=== PATIENT | female | born 2000 | race African-American/Black ===

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

== ENCOUNTER 2023-05-10 14:11 | Emergency (ER) | payer MEDICAID, SELFPAY ==
--- NOTE | ~2023-05-10 | US_ITS ---
EXAMINATION: US ABDOMEN LIMITED CLINICAL INFORMATION: Epigastric, right upper quadrant pain. COMPARISON: None available. TECHNIQUE: Real-time imaging of the right upper quadrant abdominal viscera. FINDINGS: PANCREAS: Normal. LIVER: The liver is normal in size. The liver contour is normal. Parenchymal echogenicity is normal. There is an echogenic lesion in the right hepatic lobe measuring 1.0 1.6 x 0.8 cm. There is no intrahepatic biliary duct dilatation seen. GALLBLADDER: Gallbladder wall thickness is 0.2 cm The gallbladder is physiologically distended without evidence of stones, sludge, polyps, wall thickening or pericholecystic fluid. COMMON BILE DUCT: Normal in caliber measuring 0.2 cm in diameter. RIGHT KIDNEY: Normal. No hydronephrosis. No renal calculi or focal parenchymal lesions. The kidney measures 9.8 cm in maximum dimension. FREE FLUID: None. US/US abdomen limited IMPRESSION: 1. Echogenic lesion right hepatic lobe likely hemangioma. 2. The rest of the limited abdomen ultrasound is unremarkable.
[2023-05-10 14:23] VITALS: BP 141/78; BP 142/90; PULSE 102; PULSE 93; RESP 18; TEMP 36.7; O2SAT 97; BMI 32.4
[2023-05-10 17:56] LABS: MANUAL DIFF FLAG NO
--- OUTSIDE RECORDS SUMMARY | 2023-05-10 18:01 | XMS_ITS | Continuity of Care Document ---
Author Name Unknown Organization [facility] Address [address] [place] [address]- Care Team Providers Care Mini Shifter Name Role Phone Elana Jones MD Primary Care Physician Encounter [facility] Date(s): 02/03/22 - 06/03/22 [facility] [address] [place] [id number]- Attending Physician: Gena Chou MD Admitting Physician: Gena Chou MD Allergies, Adverse Reactions, Alerts No Known Allergies Medications 18G 1inch needle 18G 1inch needle, See Instructions, # 4 each, Refills 5, Tot. Refills 5, Maintenance, to draw testosterone, to be administered weekly, 03/10/22 16:07:00 EDT, Compound, 162, cm, 01/05/22 10:38:00 EDT,Height, 82.6, kg, 01/05/22 10:38:00 EDT, Dry Weight Start Date: 03/10/22 Status: Ordered 1ml syringe 1ml syringe, See Instructions, # 4 each, Refills 5, Tot. Refills 5, Maintenance, To administer testosterone weekly, 03/10/22 16:07:00 EDT, Do NOT dispense insulin syringe, Compound, 162, cm, 01/05/2210:38:00 EDT, Height, 82.6, kg, 01/05/22 10:38:00 E... Start Date: 03/10/22 Status: Ordered 25G 5/8'' needle 25G 5/8'' needle, See Instructions, # 4 each, Refills 5, Tot. Refills 5, Maintenance, use to administer testosterone SQ weekly, 03/10/22 16:07:00 EDT, Supply, 162, cm, 01/05/22 10:38:00 EDT, Height, 82.6, kg, 01/05/22 10:38:00 EDT, Dry Weight Start Date: 03/10/22 Status: Ordered Abilify 20 mg oral tablet 1 tablet = 20 mg, By Mouth, Daily at bedtime, 0 Refills, Maintenance, 08/04/21 14:10:00 EDT, Partial fill upon patient request if the prescription is for a schedule II opioid drug. Start Date: 08/04/21 Status: Ordered Alcohol Pads See Instructions, # 100 each, Refills 11, Tot. Refills 11, Maintenance, For testosterone injectionsuse once weekly prior to injection, 03/01/22 11:45:00 EDT, Supply, 162, cm, 01/05/22 10:38:00 EDT, Height, 82.6, kg, 01/05/22 10:38:00 EDT, Dry Weight Start Date: 03/01/22 Status: Ordered escitalopram 20 mg oral tablet 1 tablet = 20 mg, By Mouth, Daily, 0 Refills, Maintenance, 08/04/21 14:11:00 EDT, Partial fill uponpatient request if the prescription is for a schedule II opioid drug. Start Date: 08/04/21 Status: Ordered lamotrigine 25 mg oral tablet 25 mg, 1, tablet, By Mouth, Daily, # 14 tablet, Refills 0, Tot. Refills 0, Maintenance, 08/17/21 14:13:00 EDT, Route to Pharmacy Electronically, [facility]/pharmacy #[id number], Partial fill upon patient request if the prescription is for a schedule II opioid drug... Start Date: 08/17/21 Stop Date: 08/31/21 Status: Ordered testosterone cypionate 200 mg/mL intramuscular solution See Instructions, 50mg (0.25ml) subcutaneously every 7 days., # 4 each, 3 Refills, Maintenance, 04/08/22 8:55:00 [facility], [facility] Delivery, Dose increase. Single-dose vials., 162, cm, 01/05/22 10:38:00 EDT, Height, 82.6, kg, 01/05/22 10:38:00... Start Date: 04/08/22 Status: Ordered Problem List Condition Confirmation Course Effective Dates Status Health [facility] Informant Gender dysphoria Confirmed Active Major depression with psychotic features Confirmed Active Obese class I Confirmed Active Post traumatic stress disorder (PTSD) Confirmed Active Social History Social History Type Response Smoking Status Never (less than 100 in lifetime) entered on: 04/12/21 Sex Patient Care team information Care Team Personnel Name: Elana Jones MD Position: [facility] General Pediatrics MD Member Role: PCP Address: Address: [address] [place] [address] [facility] [place] [address]- Care Team Related Persons Name: NIYAH ESCALERA Address: home [address] [place] [id number] Name: BUDDY OSHEA Address: [place] [address]
--- OUTSIDE RECORDS SUMMARY | 2023-05-10 18:01 | XMS_ITS | Continuity of Care Document ---
Author Name Unknown Organization [facility] Address [address] [place] [address]- Care Team Providers Care Screenplay Writer Name Role Phone Elana Jones MD Primary Care Physician [place] [facility] [place]10[place]21 - 12/10/21 [facility] [address] [place] [phone]- [place] Allergies, Adverse Reactions, Alerts No Known Medication Allergies Medications 18G 1inch needle 18G 1inch needle, See Instructions, # 4 each, Refills 5, Tot. Refills 5, Maintenance, to draw testosterone, to be administered weekly, 11/16/21 9:55:00 EDT, Compound, 162, cm, 08/04/21 14:06:00 EDT, Height, 68, kg, 07/25/21 11:12:00 EDT, Dry Weight Start Date: 11/16/21 Status: Ordered 1ml syringe 1ml syringe, See Instructions, # 4 each, Refills 5, Tot. Refills 5, Maintenance, To administer testosterone weekly, 11/16/21 9:55:00 EDT, Compound, 162, cm, 08/04/21 14:06:00 EDT, Height, 68, kg, 07/25/21 11:12:00 EDT, Dry Weight Start Date: 11/16/21 Status: Ordered 25G 5/8'' needle 25G 5/8'' needle, See Instructions, # 4 each, Refills 5, Tot. Refills 5, Maintenance, use to administer testosterone SQ weekly, 11/16/21 9:55:00 EDT, Supply, 162, cm, 08/04/21 14:06:00 EDT, Height, 68, kg, 07/25/21 11:12:00 EDT, Dry Weight Start Date: 11/16/21 Status: Ordered Abilify 20 mg oral tablet 1 tablet = 20 mg, By Mouth, Daily at bedtime, 0 Refills, Maintenance, 08/04/21 14:10:00 EDT, Partial fill upon patient request if the prescription is for a schedule II opioid drug. Start Date: 08/04/21 Status: Ordered Alcohol Pads See Instructions, # 50 each, Refills 11, Tot. Refills 11, Maintenance, For testosterone injections use once weekly prior to injection, 11/25/21 15:19:00 EDT, Supply, 162.2, cm, 11/25/21 13:45:00 EDT,Height, 78.35, kg, 11/25/21 13:45:00 EDT, Dry Weight Start Date: 11/25/21 Status: Ordered escitalopram 20 mg oral tablet [...] 08/17/21 14:13:00 EDT, Route to Pharmacy Electronically, [facility]/pharmacy #[id number], Partial fill upon patient request if the prescription is for a schedule II opioid drug... Start Date: 08/17/21 Stop Date: 08/31/21 Status: Ordered testosterone cypionate 200 mg/mL intramuscular solution See Instructions, 40mg (0.2ml) subcutaneously Every 7 days, # 4 each, 5 Refills, Maintenance, 11/16/21 9:55:00 EDT, [id number], Partial fill upon patient request if the prescription is for a schedule II opioid drug., 162, cm, 08/04/21 14:06:00... Start Date: 11/16/21 Status: Ordered Problem List Condition Effective Dates Status Health Status Inform ant Gender dysphoria(Confirmed) Active Major depression with psycho tic features(Confirmed) Active Post traumatic stress disord er (PTSD)(Confirmed) Active Social History Social History Type Response Smoking Status Never (less than 100 in lifetime) entered on: 04/12/21 Sex
--- OUTSIDE RECORDS SUMMARY | 2023-05-10 18:01 | XMS_ITS | Continuity of Care Document ---
Author Name Unknown Organization [facility] Address [address] [place] [address]- Care Team Providers Care Wood Sash And Frame Carpenter Name Role Phone Elana Jones MD Primary Care Physician Encounter [facility] Date(s): 02/12/22 - 03/14/22 [facility] [address] [place] [phone]- [place] Allergies, Adverse Reactions, Alerts No Known Allergies [...] 08/17/21 14:13:00 EDT, Route to Pharmacy Electronically, [facility]/pharmacy #[id number], Partial fill upon patient request if the prescription is for a schedule II opioid drug... Start Date: 08/17/21 Stop Date: 08/31/21 Status: Ordered testosterone cypionate 200 mg/mL intramuscular solution See Instructions, 40mg (0.2ml) subcutaneously every 7 days., # 4 each, 2 Refills, Maintenance, 02/10/22 10:22:00 EDT, [facility] Home [facility], Partial fill upon patient request if the prescription is for a schedule II opioid drug., 162, cm, 12/09... Start Date: 02/10/22 Status: Ordered Problem List Condition Confirmation Course Effective Dates Status Health St [facility] Informant Gender dysphoria Confirmed Active Major depression with psychotic features Confirmed Active Obese class I Confirmed Active Post traumatic stress disorder (PTSD) Confirmed Active Social History Social History Type Response Smoking Status Never (less than 100 in lifetime) entered on: 04/12/21 Sex Patient Care team information Personnel Name: Karen BIRD, Elana Address: Address: [address] [place] [address] [facility] [place], [place] [address]
--- OUTSIDE RECORDS SUMMARY | 2023-05-10 18:01 | XMS_ITS | Continuity of Care Document ---
Author Name Unknown Organization [facility] Address [address] [place] [address]- Care Team Providers Care Technician Trainee Name Role Phone Elana Jones MD Primary Care Physician [place] [facility] [place] 01/20/22 - 02/19/22 [facility] [address] [place] [phone]- [place] Allergies, Adverse Reactions, Alerts No Known Allergies Medications 18G 1inch needle 18G 1inch needle, See Instructions, # 4 each, Refills 5, Tot. Refills 5, Maintenance, to draw testosterone, to be administered weekly, 02/12/22 11:29:00 EDT, Compound, 162, cm, 01/05/22 10:38:00 EDT,Height, 82.6, kg, 01/05/22 10:38:00 EDT, Dry Weight Start Date: 02/12/22 Status: Ordered 1ml syringe 1ml syringe, See Instructions, # 4 each, Refills 5, Tot. Refills 5, Maintenance, To administer testosterone weekly, 02/12/22 11:29:00 EDT, Do NOT dispense insulin syringe, Compound, 162, cm, 01/05/2210:38:00 EDT, Height, 82.6, kg, 01/05/22 10:38:00 E... Start Date: 02/12/22 Status: Ordered 25G 5/8'' needle 25G 5/8'' needle, See Instructions, # 4 each, Refills 5, Tot. Refills 5, Maintenance, use to administer testosterone SQ weekly, 02/12/22 11:29:00 EDT, Supply, 162, cm, 01/05/22 10:38:00 EDT, Height, 82.6, kg, 01/05/22 10:38:00 EDT, Dry Weight Start Date: 02/12/22 Status: Ordered Abilify 20 mg oral tablet [...] injections use once weekly prior to injection, 02/09/22 11:03:00 EDT, Supply, 162, cm, 01/05/22 10:38:00 EDT, Height, 82.6, kg, 01/05/22 10:38:00 EDT, Dry Weight Start Date: 02/09/22 Status: Ordered escitalopram 20 mg oral tablet [...] 08/17/21 14:13:00 EDT, Route to Pharmacy Electronically, [facility]/pharmacy #[id number], Partial fill upon patient request if the prescription is for a schedule II opioid drug... Start Date: 08/17/21 Stop Date: 08/31/21 Status: Ordered testosterone cypionate 200 mg/mL intramuscular solution See Instructions, 40mg (0.2ml) subcutaneously every 7 days., # 4 each, 2 Refills, Maintenance, 02/10/22 10:22:00 EDT, [facility] Home Delivery, Partial fill upon patient [...] Personnel Name: Karen BIRD, Elana Address: Address: [address] [place] [address] [facility] [place], [place] [address]
--- OUTSIDE RECORDS SUMMARY | 2023-05-10 18:01 | XMS_ITS | Continuity of Care Document ---
Author Name Unknown Organization [facility] Address [address] [place] [address]- Care Team Providers Care Mill Representative Name Role Phone Elana Jones MD Primary Care Physician [place] [facility] [place] Date(s): 11/05/21 - 12/05/21 [facility] [address] [place] [phone]- [place] Allergies, Adverse Reactions, Alerts No Known [...] 08/17/21 14:13:00 EDT, Route to Pharmacy Electronically, [facility]/pharmacy #[id number], Partial fill upon patient request if the prescription is for a schedule II opioid drug... Start Date: 08/17/21 Stop Date: 08/31/21 Status: Ordered testosterone cypionate 200 mg/mL intramuscular solution See Instructions, 40mg (0.2ml) subcutaneously Every 7 days, # 4 each, 5 Refills, Maintenance, 11/16/21 9:55:00 EDT, [id number], Partial fill upon patient request if the [...]
--- OUTSIDE RECORDS SUMMARY | 2023-05-10 18:01 | XMS_ITS | Continuity of Care Document ---
Author Name Unknown Organization [facility] Address [address] [place] [address]- Care Team Providers Care Airline Pilot Name Role Phone Elana Jones MD Primary Care Physician Encounter [facility] [place] Date(s): 03/10/22 - 04/09/22 [facility] [address] [place] [phone]- [place] Allergies, Adverse Reactions, Alerts No Known [...] 08/17/21 14:13:00 EDT, Route to Pharmacy Electronically, [facility]/pharmacy #[id number], Partial fill upon patient request if the prescription is for a schedule II opioid drug... Start Date: 08/17/21 Stop Date: 08/31/21 Status: Ordered testosterone cypionate 200 mg/mL intramuscular solution See Instructions, 50mg (0.25ml) subcutaneously every 7 days., # 4 each, 3 Refills, Maintenance, 04/08/22 8:55:00 [facility], [facility] Home Delivery, Dose increase. Single-dose vials., [...] Team Personnel Name: Elana Jones MD Position: [facility] General Pediatrics MD Member Role: PCP Address: Address: [address] [place] [address] [place] [address]- Care Team Related Persons Name: NIYAH ESCALERA Address: home [address] [place] [phone] Name: BUDDY OHSEA Address: [place] [address]
--- OUTSIDE RECORDS SUMMARY | 2023-05-10 18:01 | XMS_ITS | Continuity of Care Document ---
Author Name Unknown Organization [facility] Address [address] [place] [address]- Care Team Providers Care Tube Worker Name Role Phone Elana Jones MD Primary Care Physician [place] [facility] [place](s[place] 03/09/22 - 04/08/22 [facility] [address] [place] [address]- [place] Allergies, Adverse Reactions, Alerts No Known [...] 08/17/21 14:13:00 EDT, Route to Pharmacy Electronically, [facility]/pharmacy #[id number], Partial fill upon patient request if the prescription is for a schedule II opioid drug... Start Date: 08/17/21 Stop Date: 08/31/21 Status: Ordered testosterone cypionate 200 mg/mL intramuscular solution See Instructions, 50mg (0.25ml) subcutaneously every 7 days., # 4 each, 3 Refills, Maintenance, 04/08/22 8:55:00 [facility], [facility] Home Delivery, Dose increase. Single-dose vials., [...] Team Personnel Name: Elana Jones MD Position: [facility] General Pediatrics MD Member Role: PCP Address: Address: [address] [place] [address] [place] [address]- Care Team Related Persons Name: NIYAH ESCALERA Address: home [address] [place] [phone] Name: BUDDY OSHEA Address: [place] [address]
--- OUTSIDE RECORDS SUMMARY | 2023-05-10 18:01 | XMS_ITS | Continuity of Care Document ---
Author Name Unknown Organization [facility] Address [address] [place] [address]- Care Team Providers Care Assistant Professor Of Anthropology Name Role Phone Elana Jones MD Primary [facility] Phys[id number] Date[facility] 08/19/21 - 12/16/21 [facility] [address] [place] [phone]- Attending Physician: Mel Zhao MD Admitting Physician: Mel Zhao MD Allergies, Adverse Reactions, Alerts No Known Medication [...] 08/17/21 14:13:00 EDT, Route to Pharmacy Electronically, [facility]/pharmacy #[id number], Partial fill upon patient request if the prescription is for a schedule II opioid drug... Start Date: 08/17/21 Stop Date: 08/31/21 Status: Ordered testosterone cypionate 200 mg/mL intramuscular solution See Instructions, 40mg (0.2ml) subcutaneously Every 7 days, # 4 each, 5 Refills, Maintenance, 11/16/21 9:55:00 EDT, [facility]/pharmacy #[id number], Partial fill upon patient request if the [...]
--- OUTSIDE RECORDS SUMMARY | 2023-05-10 18:01 | XMS_ITS | Continuity of Care Document ---
Author Name Unknown Organization [facility] Address [address] [place] [phone]- Care Team Providers Care Glass Curvature Gauger Name Role Phone Ealna Jones MD Primary Care Physician Encounter [facility] Date(s): 12/07/22 - 01/06/23 [facility] [address] [place] [id number] Allergies, Adverse Reactions, Alerts No Known Allergies Medications 18G 1inch needle 18G 1inch needle, See Instructions, # 4 each, Refills 5, Tot. Refills 5, Maintenance, to draw testosterone, to be administered weekly, 07/29/22 15:46:00 EDT, Compound, 162, cm, 01/05/22 10:38:00 EDT,Height, 82.6, kg, 01/05/22 10:38:00 EDT, Dry Weight Start Date: 07/29/22 Status: Ordered 1ml syringe 1ml syringe, See Instructions, # 4 each, Refills 5, Tot. Refills 5, Maintenance, To administer testosterone weekly, 07/29/22 15:46:00 EDT, Do NOT dispense insulin syringe, Compound, 162, cm, 01/05/2210:38:00 EDT, Height, 82.6, kg, 01/05/22 10:38:00 E... Start Date: 07/29/22 Status: Ordered 25G 5/8'' needle 25G 5/8'' needle, See Instructions, # 4 each, Refills 5, Tot. Refills 5, Maintenance, use to administer testosterone SQ weekly, 07/29/22 15:43:00 EDT, Supply, 162, cm, 01/05/22 10:38:00 EDT, Height, 82.6, kg, 01/05/22 10:38:00 EDT, Dry Weight Start Date: 07/29/22 Status: Ordered Abilify 20 mg oral tablet [...] 08/17/21 14:13:00 EDT, Route to Pharmacy Electronically, [facility]/pharmacy #[id number], Partial fill upon patient request if the prescription is for a schedule II opioid drug... Start Date: 08/17/21 Stop Date: 08/31/21 Status: Ordered testosterone cypionate 200 mg/mL intramuscular solution See Instructions, 50mg (0.25ml) subcutaneously every 7 days., # 4 each, 5 Refills, Maintenance, 12/31/22 15:23:00 EDT, Dose increase. Single-dose vials. Start Date: 12/31/22 Status: Ordered Problem List Condition Confirmation Course [...] Team Personnel Name: Elana Jones MD Position: [facility] Physician - Pediatrics Member Role: PCP Address: Address: [address] [place] [address] [facility] [place] [address]- Care Team Related Persons Name: NIYAH ESCALERA Address: home [address] [place] [address] Name: BUDDY OSHEA Address: [place] [address]
--- OUTSIDE RECORDS SUMMARY | 2023-05-10 18:01 | XMS_ITS | Continuity of Care Document ---
Author Name Unknown Organization [facility] Address [address] [place] [address]- Care Team Providers Care Cylinder Machine Operator Name Role Phone Elana Jones MD Primary Care Physician [place] [facility] [place]10[place] - 04/09/22 [facility] [address] [place] [address]- [place] Allergies, Adverse Reactions, Alerts No Known [...] 14:13:00 EDT, Route to Pharmacy Electronically, [facility]/pharmacy #[id number], Partial fill upon patient request if the prescription is for a schedule II opioid drug... Start Date: 08/17/21 Stop Date: 08/31/21 Status: Ordered testosterone cypionate 200 mg/mL intramuscular solution See Instructions, 50mg (0.25ml) subcutaneously every 7 days., # 4 each, 3 Refills, Maintenance, 04/08/22 8:55:00 [facility], Dose increase. Single-dose vials., [...] Team Personnel Name: Elana Jones MD Position: [facility] General Pediatrics MD Member Role: PCP Address: Address: [address] [place] [address] [place] [address]- Care Team Related Persons Name: NIYAH ESCALERA Address: home [address] [place] [phone] Name: BUDDY OSHEA Address: [place] [address]
--- OUTSIDE RECORDS SUMMARY | 2023-05-10 18:01 | XMS_ITS | Continuity of Care Document ---
Author Name Unknown Organization [facility] Address [address] [place] [address]- Care Team Providers Care Trolley Car Overhauler Name Role Phone Elana Jones MD Primary Care Physician [place] [facility] [place] 09/02/22 [facility] [address] [place] [address]- Allergies, Adverse Reactions, Alerts No Known Allergies [...] 08/17/21 14:13:00 EDT, Route to Pharmacy Electronically, [facility]/pharmacy #[id number], Partial fill upon patient request if the prescription is for a schedule II opioid drug... Start Date: 08/17/21 Stop Date: 08/31/21 Status: Ordered testosterone cypionate 200 mg/mL intramuscular solution See Instructions, 50mg (0.25ml) subcutaneously every 7 days., # 4 each, 3 Refills, Maintenance, 08/03/22 15:49:00 EDT, [id number], Dose increase. Single-dose vials., 162, cm, 01/05/22 10:38:00 EDT, Height, 82.6, kg, 01/05/22 10:38:00 EDT, Dry... Start Date: 08/03/22 Status: Ordered Problem List Condition Confirmation Course [...] Team Personnel Name: Elana Jones MD Position: [facility] General Pediatrics MD Member Role: PCP Address: Address: [address] [place] [address] [place] [address]- Care Team Related Persons Name: NIYAH ESCALERA Address: home [address] [place] [phone] Name: BUDDY OSHEA Address: [place] [address]
--- OUTSIDE RECORDS SUMMARY | 2023-05-10 18:02 | XMS_ITS | Continuity of Care Document ---
Author Name Unknown Organization [facility] nd[facility] Address [address] [place] [address]- Care Team Providers Care Upper Marker Name Role Phone Elana Jones MD Primary Care Physician En[place] [facility] [place] Date(s): 01/20/22 - 02/19/22 [facility] [address] [place] [address]- [place] Allergies, Adverse Reactions, Alerts No Known [...] 08/17/21 14:13:00 EDT, Route to Pharmacy Electronically, [facility]/pharmacy #[id number], Partial fill upon patient request if the prescription is for a schedule II opioid drug... Start Date: 08/17/21 Stop Date: 08/31/21 Status: Ordered testosterone cypionate 200 mg/mL intramuscular solution See Instructions, 40mg (0.2ml) subcutaneously every 7 days., # 4 each, 2 Refills, Maintenance, 02/10/22 10:22:00 EDT, [facility] Home Delivery, Partial fill upon patient [...] Personnel Name: Karen BIRD, Elana Address: Address: [address] [place] [address] [facility] [place], [place] [address]
--- OUTSIDE RECORDS SUMMARY | 2023-05-10 18:02 | XMS_ITS | Continuity of Care Document ---
Author Name Unknown Organization [facility] Address [address] [place] [address]- Care Team Providers Care Cable Installer Repairer Name Role Phone Elana Jones MD Primary Care Physician En[place] [facility] [place] Date(s): 06/18/22 - 07/18/22 [facility] [address] [place] [phone]- Allergies, Adverse Reactions, Alerts No Known Allergies [...] Maintenance, use to administer testosterone SQ weekly, 06/29/22 13:46:00 EST, Supply, 162, cm, 01/05/22 10:38:00 EDT, Height, 82.6, kg, 01/05/22 10:38:00 EDT, Dry Weight Start Date: 06/29/22 Status: Ordered Abilify 20 mg oral tablet [...] 08/17/21 14:13:00 EDT, Route to Pharmacy Electronically, [facility]/pharmacy #[id number], Partial fill upon patient request if the prescription is for a schedule II opioid drug... Start Date: 08/17/21 Stop Date: 08/31/21 Status: Ordered testosterone cypionate 200 mg/mL intramuscular solution See Instructions, 50mg (0.25ml) subcutaneously every 7 days., # 4 each, 3 Refills, Maintenance, 04/08/22 8:55:00 [facility], [facility] Home Delivery, Dose increase. Single-dose vials., [...] Team Personnel Name: Elana Jones MD Position: [facility] General Pediatrics MD Member Role: PCP Address: Address: [address] [place] [address] [place] [address]- Care Team Related Persons Name: NIYAH ESCALERA Address: home [address] [place] [phone] Name: BUDDY OHSEA Address: [place] [address]
--- OUTSIDE RECORDS SUMMARY | 2023-05-10 18:02 | XMS_ITS | Continuity of Care Document ---
Author Name Unknown Organization [facility] Address [address] [place] [address]- Care Team Providers Care Powerhouse Electrician Apprentice Name Role Phone Elana Jones MD Primary Care Physician [place] [facility] [place] 12[place]16[place]21 [facility] [address] [place] [phone]- [place] Allergies, Adverse Reactions, Alerts No Known [...] 08/17/21 14:13:00 EDT, Route to Pharmacy Electronically, [facility]/pharmacy #[id number], Partial fill upon patient request if the prescription is for a schedule II opioid drug... Start Date: 08/17/21 Stop Date: 08/31/21 Status: Ordered testosterone cypionate 200 mg/mL intramuscular solution See Instructions, 40mg (0.2ml) subcutaneously Every 7 days, # 4 each, 5 Refills, Maintenance, 11/16/21 9:55:00 EDT, [facility]/pharmacy #[id number], Partial fill upon patient request if the [...]
--- OUTSIDE RECORDS SUMMARY | 2023-05-10 18:02 | XMS_ITS | Continuity of Care Document ---
Author Name Unknown Organization [facility] Address [address] [place] [address]- Care Team Providers Care Aircraft Motor Mechanic Name Role Phone Elana Jones MD Primary Care Physician En[place] [facility] [place] Date(s): 02/12/22 - 03/14/[address] [facility] [address] [place] [phone]- [place] Allergies, Adverse Reactions, Alerts No Known [...] Route to Pharmacy Electronically, [facility]/pharmacy #[id number], Partial fill upon patient request if the prescription is for a schedule II opioid drug... Start Date: 08/17/21 Stop Date: 08/31/21 Status: Ordered testosterone cypionate 200 mg/mL intramuscular solution See Instructions, 40mg (0.2ml) subcutaneously every 7 days., # 4 each, 2 Refills, Maintenance, 02/10/22 10:22:00 EDT, [facility] Home Delivery, Partial fill upon [...] Personnel Name: Karen BIRD, Elana Address: Address: [address] [place] [address] [facility] [place], [place] [address]
--- OUTSIDE RECORDS SUMMARY | 2023-05-10 18:02 | XMS_ITS | Continuity of Care Document ---
Author Name Unknown Organization [facility] E ndocrinology Address [address] [place] [address]- Care Team Providers Care Recyclable Products Sorter Name Role Phone Elana Jones MD Primary Care Physician [place] [facility] [place] - 01/21/22 [facility] [address] [place] [address]- [place] Allergies, Adverse Reactions, Alerts No Known Allergies Medications 18G 1inch needle 18G 1inch needle, See Instructions, # 4 each, Refills 5, Tot. Refills 5, Maintenance, to draw testosterone, to be administered weekly, 12/21/21 14:02:00 EDT, Compound, 162.2, cm, 11/25/21 13:45:00 EDT, Height, 78.35, kg, 11/25/21 13:45:00 EDT, Dry Weight Start Date: 12/21/21 Status: Ordered 1ml syringe 1ml syringe, See Instructions, # 4 each, Refills 5, Tot. Refills 5, Maintenance, To administer testosterone weekly, 12/21/21 14:02:00 EDT, Do NOT dispense insulin syringe, Compound, 162.2, cm, 11/25/21 13:45:00 EDT, Height, 78.35, kg, 11/25/21 13:45:0... Start Date: 12/21/21 Status: Ordered 25G 5/8'' needle 25G 5/8'' needle, See Instructions, # 4 each, Refills 5, Tot. Refills 5, Maintenance, use to administer testosterone SQ weekly, 12/21/21 14:02:00 EDT, Supply, 162.2, cm, 11/25/21 13:45:00 EDT, Height, 78.35, kg, 11/25/21 13:45:00 EDT, Dry Weight Start Date: 12/21/21 Status: Ordered Abilify 20 mg oral tablet [...] 08/17/21 14:13:00 EDT, Route to Pharmacy Electronically, [facility]/pharmacy #[id number], Partial fill upon patient request if the prescription is for a schedule II opioid drug... Start Date: 08/17/21 Stop Date: 08/31/21 Status: Ordered testosterone cypionate 200 mg/mL intramuscular solution See Instructions, 40mg (0.2ml) subcutaneously every 7 days., # 4 each, 3 Refills, Maintenance, 01/20/22 9:57:00 EDT, [facility]/pharmacy #[id number], Partial fill upon patient request if the prescription is for aschedule II opioid drug., 162, cm, 01/05/22 10:38:0... Start Date: 01/20/22 Status: Ordered Problem List Condition Effective Dates Status Health Status Inform ant Gender dysphoria(Confirmed) Active Major depression with psycho tic features(Confirmed) Active Obese class I(Confirmed) Active Post traumatic stress disord er (PTSD)(Confirmed) Active Social History Social History Type Response Smoking Status Never (less than 100 in lifetime) entered on: 04/12/21 Sex Care Team Personnel Name: Elana Jones MD Address: [address] [place] [address] [facility] [place] [address]
--- OUTSIDE RECORDS SUMMARY | 2023-05-10 18:02 | XMS_ITS | Continuity of Care Document ---
Author Name Unknown Organization [facility] Address [address] [place] [address]- Care Team Providers Care Loss Control Technician Name Role Phone Elana Jones MD Primary Care Physician Encounter [facility] [place] Date(s): 01/12/23 - 02/11/23 [facility] [address] [place] [id number] Allergies, Adverse Reactions, Alerts No Known Allergies [...] 08/17/21 14:13:00 EDT, Route to Pharmacy Electronically, [facility]/pharmacy #[id number], Partial fill upon patient request if the prescription is for a schedule II opioid drug... Start Date: 08/17/21 Stop Date: 08/31/21 Status: Ordered Problem List Condition Confirmation Course [...] Team Personnel Name: Elana Jones MD Position: [facility] Physician - Pediatrics Member Role: PCP Address: Address: [address] [place] [address] [place] [address]- Care Team Related Persons Name: NIYAH ESCALERA Address: home [address] [place] [address] Name: BUDDY OSHEA Address: [place] [address]
--- OUTSIDE RECORDS SUMMARY | 2023-05-10 18:02 | XMS_ITS | Continuity of Care Document ---
Author Name Unknown Organization [facility] ndocrin[facility] Address [address] [place] [address]- Care Team Providers Care User Experience Designer Name Role Phone Elana Jones MD Primary Care Physician En[place] [facility] [place] Date(s): 01/11/23 - 02/10/23 [facility] [address] [place] [address]- [place] Allergies, Adverse Reactions, Alerts No Known [...] 08/17/21 14:13:00 EDT, Route to Pharmacy Electronically, [facility]/pharmacy #[id number], Partial fill upon patient request if the prescription is for a schedule II opioid drug... 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 Obese class I Confirmed Active Post traumatic stress disorder (PTSD) Confirmed Active Social History Social History Type Response Smoking Status Never (less than 100 in lifetime) entered on: 04/12/21 Sex Patient Care team information Care Team Personnel Name: Elana Jones MD Position: [facility] Physician - Pediatrics Member Role: PCP Address: Address: [address] [place] [address] [facility] [place] [address]- Care Team Related Persons Name: NIYAH ESCALERA Address: home [address] [place] [id number] Name: BUDDY OSHEA Address: [place] [address]
--- OUTSIDE RECORDS SUMMARY | 2023-05-10 18:02 | XMS_ITS | Continuity of Care Document ---
Author Name Unknown Organization [facility] ndocrinology Address [address] [place] [address]- Care Team Providers Care Director Social Name Role Phone Elana Jones MD Primary Care Physician [facility] [place] Date(s): 06/18/22 - 07/18/22 [facility] Endocr[facility]ology [address] [place] [address]- Allergies, Adverse Reactions, Alerts No Known Allergies [...] 08/17/21 14:13:00 EDT, Route to Pharmacy Electronically, [facility]/pharmacy #[id number], Partial fill upon patient request if the prescription is for a schedule II opioid drug... Start Date: 08/17/21 Stop Date: 08/31/21 Status: Ordered testosterone cypionate 200 mg/mL intramuscular solution See Instructions, 50mg (0.25ml) subcutaneously every 7 days., # 4 each, 3 Refills, Maintenance, 04/08/22 8:55:00 [facility] Home Delivery, Dose increase. Single-dose vials., [...] Team Personnel Name: Elana Jones MD Position: [facility] General Pediatrics MD Member Role: PCP Address: Address: [address] [place] [address] [place] [address]- Care Team Related Persons Name: NIYAH ESCALERA Address: home [address] [place] [phone] Name: BUDDY OSHEA Address: [place] [address]
--- OUTSIDE RECORDS SUMMARY | 2023-05-10 18:02 | XMS_ITS | Continuity of Care Document ---
Author Name Unknown Organization [facility] E ndocrinology Address [address] [place] [address]- Care Team Providers Care Boat Deckhand Name Role Phone Elana Jones MD Primary Care Physician [place] [facility] [place] 01/11/23 - 02/10/23 [facility] Endocr[facility] [address] [place] [phone]- [place] Allergies, Adverse Reactions, Alerts No Known [...] to Pharmacy Electronically, [facility]/pharmacy #[id number], Partial fill upon patient request if the [...] Team Personnel Name: Elana Jones MD Position: [facility] Physician - Pediatrics Member Role: PCP Address: Address: [address] [place] [address] [facility] [place] [address]- Care Team Related Persons Name: NIYAH ESCALERA Address: home [address] [place] [phone] Name: BUDDY OSHEA Address: [place] [address]
--- OUTSIDE RECORDS SUMMARY | 2023-05-10 18:02 | XMS_ITS | Continuity of Care Document ---
Author Name Unknown Organization [facility] E ndocrinology Address [address] [place] [address]- Care Team Providers Care Fruit Grader Operator Name Role Phone Elana Jones MD Primary Care Physician [place] [facility] [place] 01/20/22 [facility] Endocr[facility] [address] [place] [phone]- [place] Allergies, Adverse Reactions, Alerts No Known [...] to Pharmacy Electronically, [facility]/pharmacy #[id number], Partial fill upon patient request if the prescription is for a schedule II opioid drug... Start Date: 08/17/21 Stop Date: 08/31/21 Status: Ordered testosterone cypionate 200 mg/mL intramuscular solution See Instructions, 40mg (0.2ml) subcutaneously every 7 days., # 4 each, 3 Refills, Maintenance, 01/20/22 9:57:00 EDT, [facility]/pharmacy #[id number], Partial fill upon patient request if the [...] Team Personnel Name: Elana Jones MD Address: [address] [place] [address] [facility] [place], [place] [address]
--- OUTSIDE RECORDS SUMMARY | 2023-05-10 18:02 | XMS_ITS | Continuity of Care Document ---
Author Name Unknown Organization [facility] ndocrinology Address [address] [place] [address]- Care Team Providers Care Type Inspector Name Role Phone Elana Jones MD Primary Care Physician Encounter [facility] [place] Date(s): 02/09/22 - 03/11/22 [facility] Endocr[facility]ology [address] [place] [address]- [place] Allergies, Adverse Reactions, Alerts No Known [...] 08/17/21 14:13:00 EDT, Route to Pharmacy Electronically, [facility]/pharmacy #[id number], Partial fill upon patient request if the prescription is for a schedule II opioid drug... Start Date: 08/17/21 Stop Date: 08/31/21 Status: Ordered testosterone cypionate 200 mg/mL intramuscular solution See Instructions, 40mg (0.2ml) subcutaneously every 7 days., # 4 each, 2 Refills, Maintenance, 02/10/22 10:22:00 EDT, [facility] Home Delivery, Partial fill upon patient [...] Personnel Name: Karen BIRD, Elana Address: Address: [address] [place] [address] [facility] [place], [place] [address]
--- OUTSIDE RECORDS SUMMARY | 2023-05-10 18:02 | XMS_ITS | Continuity of Care Document ---
Author Name Unknown Organization [facility] E ndocrinology Address [address] [place] [address]- Care Team Providers Care Logistics Project Manager Name Role Phone Elana Jones MD Primary Care Physician [place] [facility] [place](s): 04/08/22 - 05/08/22 [facility] Endocr[facility] [address] [place] [address]- Allergies, Adverse Reactions, Alerts No Known Allergies [...] 08/17/21 14:13:00 EDT, Route to Pharmacy Electronically, [facility]/pharmacy #[id number], Partial fill upon patient request if the prescription is for a schedule II opioid drug... Start Date: 08/17/21 Stop Date: 08/31/21 Status: Ordered testosterone cypionate 200 mg/mL intramuscular solution See Instructions, 50mg (0.25ml) subcutaneously every 7 days., # 4 each, 3 Refills, Maintenance, 04/08/22 8:55:00 [facility] Pharm[facility] Home Delivery, Dose increase. Single-dose vials., [...] Team Personnel Name: Elana Jones MD Position: [facility] General Pediatrics MD Member Role: PCP Address: Address: [address] [place] [address] [place] [address]- Care Team Related Persons Name: NIYAH ESCALERA Address: home [address] [place] [address] Name: BUDDY OSHEA Address: [place] [address]
--- OUTSIDE RECORDS SUMMARY | 2023-05-10 18:02 | XMS_ITS | Continuity of Care Document ---
Author Name Unknown Organization [facility] Address [address] [place] [address]- Care Team Providers Care Scrap Drop Operator Name Role Phone Elana Jones MD Primary Care Physician [place] [facility] [place]17[place]21 - 09/16/21 [facility] [address] [place] [phone]- Allergies, Adverse Reactions, Alerts No Known Medication Allergies Medications Abilify 20 mg oral tablet 1 tablet = 20 mg, By Mouth, Daily at bedtime, 0 Refills, Maintenance, 08/04/21 14:10:00 EDT, Partial fill upon patient request if the prescription is for a schedule II opioid drug. Start Date: 08/04/21 Status: Ordered escitalopram 20 mg oral tablet [...] 14:13:00 EDT, Route to Pharmacy Electronically, [facility]/pharmacy #[id number], Partial fill upon patient request if the prescription is for a schedule II opioid drug... Start Date: 08/17/21 Stop Date: 08/31/21 Status: Ordered Problem List Condition Effective Dates Status Health Status Inform ant Gender dysphoria(Confirmed) Active Major depression with psycho tic features(Confirmed) Active Post traumatic stress disord er (PTSD)(Confirmed) Active Social History Social History Type Response Smoking Status Never (less than 100 in lifetime) entered on: 04/12/21 Sex
--- OUTSIDE RECORDS SUMMARY | 2023-05-10 18:02 | XMS_ITS | Continuity of Care Document ---
Author Name Unknown Organization [facility] E ndocrinology Address [address] [place] [address]- Care Team Providers Care Mergers And Acquisitions Manager Name Role Phone Elana Jones MD Primary Care Physician En[place] [facility] [place] Date(s): 11/06/21 - 12/06/21 [facility] Endocr[facility] [address] [place] [phone]- [place] Allergies, Adverse Reactions, Alerts No Known [...] 08/17/21 14:13:00 EDT, Route to Pharmacy Electronically, [facility]/pharmacy #[id number], Partial fill upon patient request if the prescription is for a schedule II opioid drug... Start Date: 08/17/21 Stop Date: 08/31/21 Status: Ordered testosterone cypionate 200 mg/mL intramuscular solution See Instructions, 40mg (0.2ml) subcutaneously Every 7 days, # 4 each, 5 Refills, Maintenance, 11/16/21 9:55:00 EDT, [id number], Partial fill upon patient request if the [...]
--- OUTSIDE RECORDS SUMMARY | 2023-05-10 18:02 | XMS_ITS | Continuity of Care Document ---
Author Name Unknown Organization [facility] Address [address] [place] [address]- Care Team Providers Care Applied Science And Technologies Dean Name Role Phone Elana Jones MD Primary Care Physician Encounter [facility] [place] Date(s): 12/31/22 - 01/30/23 [facility] [address] [place] [id number] Allergies, Adverse Reactions, Alerts No Known [...] 08/17/21 14:13:00 EDT, Route to Pharmacy Electronically, [facility]/pharmacy #[id number], Partial fill upon patient request if the [...] Team Personnel Name: Elana Jones MD Position: [facility] Physician - Pediatrics Member Role: PCP Address: Address: [address] [place] [address] [facility] [place] [address]- Care Team Related Persons Name: NIYAH ESCALERA Address: home [address] [place] [address] Name: BUDDY OSHEA Address: [place] [address]
--- OUTSIDE RECORDS SUMMARY | 2023-05-10 18:02 | XMS_ITS | Continuity of Care Document ---
Author Name Unknown Organization [facility] Address [address] [place] [address]- Care Team Providers Care Simonizer Name Role Phone Elana Jones MD Primary Care Physician En[place] [facility] [place] Date(s): 01/17/23 - 02/16/23 [facility] [address] [place] [phone] Allergies, Adverse Reactions, Alerts No Known Allergies [...] 08/17/21 14:13:00 EDT, Route to Pharmacy Electronically, [facility]/pharmacy #[id number], Partial fill upon patient request if the [...] Team Personnel Name: Elana Jones MD Position: [facility] Physician - Pediatrics Member Role: PCP Address: Address: [address] [place] [address] [facility] [place] [address]- Care Team Related Persons Name: NIYAH ESCALERA Address: home [address] [place] [address] Name: BUDDY OSHEA Address: [place] [address]
--- OUTSIDE RECORDS SUMMARY | 2023-05-10 18:02 | XMS_ITS | Continuity of Care Document ---
Author Name Unknown Organization [facility] ndocrinology Address [address] [place] [address]- Care Team Providers Care Editor Department Name Role Phone Elana Jones MD Primary Care Physician [place] [facility] [place]23 - 03/09/23 [facility] [address] [place] [phone]- [place] Allergies, Adverse Reactions, Alerts No Known [...] 14:13:00 EDT, Route to Pharmacy Electronically, [facility]/pharmacy #[id number], Partial fill upon patient request if the [...] Team Personnel Name: Elana Jones MD Position: [facility] Physician - Pediatrics Member Role: PCP Address: Address: [address] [place] [address] [place] [address]- Care Team Related Persons Name: NIYAH ESCALERA Address: home [address] [place] [phone] Name: BUDDY OSHEA Address: [place] [address]
--- OUTSIDE RECORDS SUMMARY | 2023-05-10 18:02 | XMS_ITS | Continuity of Care Document ---
Author Name Unknown Organization [facility] ndocrin[facility] Address [address] [place] [address]- Care Team Providers Care Foam Dispenser Name Role Phone Elana Jones MD Primary Care Physician [place] [facility] [place](s): 08/17/21 - 09/16/21 [facility] [address] [place] [phone]- Allergies, Adverse Reactions, Alerts No Known Medication [...] Route to Pharmacy Electronically, [facility]/pharmacy #[id number], Partial fill upon patient request if the [...]
--- OUTSIDE RECORDS SUMMARY | 2023-05-10 18:02 | XMS_ITS | Continuity of Care Document ---
Author Name Unknown Organization [facility] E ndocrinology Address [address] [place] [address]- Care Team Providers Care Sorter Packer Name Role Phone Elana Jones MD Primary Care Physician [place] [facility] [place] 07/[place]/22 - 08/28/22 [facility] Endocr[facility]ology [address] [place] [address]- Allergies, Adverse Reactions, Alerts No Known Allergies [...] 08/17/21 14:13:00 EDT, Route to Pharmacy Electronically, [facility]/pharmacy #[id number], Partial fill upon patient request if the prescription is for a schedule II opioid drug... Start Date: 08/17/21 Stop Date: 08/31/21 Status: Ordered testosterone cypionate 200 mg/mL intramuscular solution See Instructions, 50mg (0.25ml) subcutaneously every 7 days., # 4 each, 3 Refills, Maintenance, 08/03/22 15:49:00 EDT, [id number], Dose increase. Single-dose vials., 162, cm, 01/05/22 [...] Team Personnel Name: Elana Jones MD Position: [facility] General Pediatrics MD Member Role: PCP Address: Address: [address] [place] [address] [place] [address]- Care Team Related Persons Name: NIYAH ESCALERA Address: home [address] [place] [phone] Name: BUDDY OSHEA Address: [place] [address]
--- OUTSIDE RECORDS SUMMARY | 2023-05-10 18:02 | XMS_ITS | Continuity of Care Document ---
Author Name Unknown Organization [facility] ndocr[facility] Address [address] [place] [address]- Care Team Providers Care Machine Marker Name Role Phone Elana Jones MD Primary Care Physician Encounter [facility] Date(s): 02/15/22 - 03/17/22 [facility] [address] [place] [phone]- [place] Allergies, Adverse Reactions, Alerts No Known [...] 08/17/21 14:13:00 EDT, Route to Pharmacy Electronically, [facility]/pharmacy #[id number], Partial fill upon patient request if the prescription is for a schedule II opioid drug... Start Date: 08/17/21 Stop Date: 08/31/21 Status: Ordered testosterone cypionate 200 mg/mL intramuscular solution See Instructions, 40mg (0.2ml) subcutaneously every 7 days., # 4 each, 2 Refills, Maintenance, 02/10/22 10:22:00 EDT, [facility] Home Delivery, Partial fill upon patient [...] Team Personnel Name: Elana Jones MD Position: [facility] General Pediatrics MD Member Role: PCP Address: Address: [address] [place] [address] [facility] [place] [address]- Care Team Related Persons Name: NIYAH ESCALERA Address: home [address] [place] [address] Name: BUDDY OSHEA Address: [place] [address]
--- OUTSIDE RECORDS SUMMARY | 2023-05-10 18:02 | XMS_ITS | Continuity of Care Document ---
Author Name Unknown Organization [facility] E ndocrinology Address [address] [place] [address]- Care Team Providers Care Foaming Machine Operator Name Role Phone Elana Jones MD Primary Care Physician En[place] [facility] [place] Date(s): 11/10/21 - 12/10/21 [facility] Endocr[facility] [address] [place] [address]- [place] Allergies, Adverse Reactions, Alerts No Known [...] 08/17/21 14:13:00 EDT, Route to Pharmacy Electronically, [facility]/pharmacy #[id number], Partial fill upon patient request if the prescription is for a schedule II opioid drug... Start Date: 08/17/21 Stop Date: 08/31/21 Status: Ordered testosterone cypionate 200 mg/mL intramuscular solution See Instructions, 40mg (0.2ml) subcutaneously Every 7 days, # 4 each, 5 Refills, Maintenance, 11/16/21 9:55:00 EDT, [id number], Partial fill upon patient request if the [...]
--- OUTSIDE RECORDS SUMMARY | 2023-05-10 18:02 | XMS_ITS | Continuity of Care Document ---
Author Name Unknown Organization [facility] E ndocrinology Address [address] [place] [address]- Care Team Providers Care Overcoiler Name Role Phone Elana Jones MD Primary Care Physician [place] [facility] [place]s): 11/16/21 - 12/16/21 [facility] Endocr[facility] [address] [place] [phone]- [place] Allergies, Adverse Reactions, Alerts No Known [...] EDT, Route to Pharmacy Electronically, [facility]/pharmacy #[id number], Partial fill upon patient request if the prescription is for a schedule II opioid drug... Start Date: 08/17/21 Stop Date: 08/31/21 Status: Ordered testosterone cypionate 200 mg/mL intramuscular solution See Instructions, 40mg (0.2ml) subcutaneously Every 7 days, # 4 each, 5 Refills, Maintenance, 11/16/21 9:55:00 EDT, [id number], Partial fill upon patient request if the [...]
--- OUTSIDE RECORDS SUMMARY | 2023-05-10 18:03 | XMS_ITS | Continuity of Care Document ---
Author Name Unknown Organization [facility] Pediatric E ndocrinology Address [address] [place] [address]- Care Team Providers Care Lift Electrician Name Role Phone Elana Jones MD Primary Care Physician [place] [facility] [place] - 02/13/22 [facility] Pediatric Endocrinology [address] [place] [phone]- [place] Allergies, Adverse Reactions, Alerts No Known [...] 08/17/21 14:13:00 EDT, Route to Pharmacy Electronically, [facility]/pharmacy #[id number], Partial fill upon patient request if the prescription is for a schedule II opioid drug... Start Date: 08/17/21 Stop Date: 08/31/21 Status: Ordered testosterone cypionate 200 mg/mL intramuscular solution See Instructions, 40mg (0.2ml) subcutaneously every 7 days., # 4 each, 2 Refills, Maintenance, 02/10/22 10:22:00 EDT, [facility] Home [facility], Partial fill upon patient [...] Personnel Name: Karen BIRD, Elana Address: Address: [address] [place] [address] [facility] [place] [address]
--- OUTSIDE RECORDS SUMMARY | 2023-05-10 18:03 | XMS_ITS | Continuity of Care Document ---
Author Name Unknown Organization [facility] E ndocrinology Address [address] [place] [address]- Care Team Providers Care Healthcare Technician Name Role Phone Elana Jones MD Primary Care Physician [place] [facility] [place] 08/09/22 - 09/08/22 [facility] Endocrinology [address] [place] [phone]- [place] Allergies, Adverse Reactions, Alerts No Known [...] Route to Pharmacy Electronically, [facility]/pharmacy #[id number], Partial fill upon patient request if the prescription is for a schedule II opioid drug... Start Date: 08/17/21 Stop Date: 08/31/21 Status: Ordered testosterone cypionate 200 mg/mL intramuscular solution See Instructions, 50mg (0.25ml) subcutaneously every 7 days., # 4 each, 3 Refills, Maintenance, 08/03/22 15:49:00 EDT, [id number], Dose increase. Single-dose vials., 162, cm, 01/05/22 [...] Team Personnel Name: Elana Jones MD Position: [facility] General Pediatrics MD Member Role: PCP Address: Address: [address] [place] [address] [place] [address]- Care Team Related Persons Name: NIYAH ESCALERA Address: home [address] [place] [phone] Name: BUDDY OSHEA Address: [place] [address]
--- OUTSIDE RECORDS SUMMARY | 2023-05-10 18:03 | XMS_ITS | Continuity of Care Document ---
Author Name Unknown Organization [facility] Pediatric E ndocrinology Address [address] [place] [address]- Care Team Providers Care Pure Pak Machine Operator Name Role Phone Elana Jones MD Primary Care Physician Encounter [facility] [place] Date(s): 08/09/22 - 09/08/22 [facility] Pediatric Endocrinology [address] [place] [phone]- [place] Allergies, Adverse Reactions, Alerts No Known [...] 08/17/21 14:13:00 EDT, Route to Pharmacy Electronically, [facility]/pharmacy #[id number], Partial fill upon patient request if the prescription is for a schedule II opioid drug... Start Date: 08/17/21 Stop Date: 08/31/21 Status: Ordered testosterone cypionate 200 mg/mL intramuscular solution See Instructions, 50mg (0.25ml) subcutaneously every 7 days., # 4 each, 3 Refills, Maintenance, 08/03/22 15:49:00 EDT, [id number], Dose increase. Single-dose vials., 162, cm, 01/05/22 [...] Team Personnel Name: Elana Jones MD Position: [facility] General Pediatrics MD Member Role: PCP Address: Address: [address] [place] [address] [place] [address]- Care Team Related Persons Name: NIYAH ESCALERA Address: home [address] [place] [phone] Name: BUDDY OSHEA Address: [place] [address]
--- OUTSIDE RECORDS SUMMARY | 2023-05-10 18:03 | XMS_ITS | Continuity of Care Document ---
Author Name Unknown Organization [facility] Address [address] [place] [address]- Care Team Providers Care Maintenance Mechanic Technician Name Role Phone Elana Jones MD Primary Care Physician [place] [facility] [place] 11/06/21 - 12/06/21 [facility] Endocr[facility] [address] [place] [phone]- [place] Allergies, Adverse Reactions, Alerts No Known [...] 14:13:00 EDT, Route to Pharmacy Electronically, [facility]/pharmacy #[id number], Partial fill upon patient request if the prescription is for a schedule II opioid drug... Start Date: 08/17/21 Stop Date: 08/31/21 Status: Ordered testosterone cypionate 200 mg/mL intramuscular solution See Instructions, 40mg (0.2ml) subcutaneously Every 7 days, # 4 each, 5 Refills, Maintenance, 11/16/21 9:55:00 EDT, [id number], Partial fill upon patient request if the [...]
--- OUTSIDE RECORDS SUMMARY | 2023-05-10 18:03 | XMS_ITS | Continuity of Care Document ---
Author Name Unknown Organization [facility] Pediatric E ndocrinology Address [address] [place] [address]- Care Team Providers Care Marketing Information Analyst Name Role Phone Elana Jones MD Primary Care Physician [place] [facility] [place] - 12/13/21 [facility] Pediatric Endocrinology [address] [place] [phone]- [place] Allergies, Adverse Reactions, Alerts No Known [...] to Pharmacy Electronically, [facility]/pharmacy #[id number], Partial fill upon patient request if the prescription is for a schedule II opioid drug... Start Date: 08/17/21 Stop Date: 08/31/21 Status: Ordered testosterone cypionate 200 mg/mL intramuscular solution See Instructions, 40mg (0.2ml) subcutaneously Every 7 days, # 4 each, 5 Refills, Maintenance, 11/16/21 9:55:00 EDT, [id number], Partial fill upon patient request if the [...]
--- OUTSIDE RECORDS SUMMARY | 2023-05-10 18:03 | XMS_ITS | Continuity of Care Document ---
Author Name Unknown Organization [facility] Pediatric C ardiology Address [address] [place] [address]- Care Team Providers Care Barnworker Groom Name Role Phone Elana Jones MD Primary Care Physician [place] [facility] [place] - 01/05/23 [facility] Pediatric Cardiology [address] [place] [phone]- [place] Allergies, Adverse Reactions, Alerts No Known [...] 08/17/21 14:13:00 EDT, Route to Pharmacy Electronically, [facility]/pharmacy #[id number], Partial fill upon patient request if the [...] Team Personnel Name: Elana Jones MD Position: [facility] Physician - Pediatrics Member Role: PCP Address: Address: [address] [place] [address] [place] [address]- [place] Care Team Related Persons Name: NIYAH ESCALERA Address: home [address] [address] Name: BUDDY OSHEA Address: [place] [address]
--- OUTSIDE RECORDS SUMMARY | 2023-05-10 18:03 | XMS_ITS | Continuity of Care Document ---
Author Name Unknown Organization [facility] Pediatric E ndocrinology Address [address] [place] [address]- Care Team Providers Care Content Designer Name Role Phone Elana Jones MD Primary Care Physician [place] [facility] [place] Date(s): 12/18/21 - 01/17/22 [facility] Pediatric Endocrinology [address] [place] [phone]- [place] Allergies, Adverse Reactions, Alerts No Known [...] 08/17/21 14:13:00 EDT, Route to Pharmacy Electronically, [facility]/pharmacy #[id number], Partial fill upon patient request if the prescription is for a schedule II opioid drug... Start Date: 08/17/21 Stop Date: 08/31/21 Status: Ordered testosterone cypionate 200 mg/mL intramuscular solution See Instructions, 40mg (0.2ml) subcutaneously every 7 days, # 4 each, 3 Refills, Maintenance, 12/22/21 12:25:00 EDT, [facility]/pharmacy #[id number], Partial fill upon patient request if the prescription is for aschedule II opioid drug., 162.2, cm, 11/25/21 13:45... Start Date: 12/22/21 Status: Ordered Problem List Condition Effective Dates Status Health Status Inform ant Gender dysphoria(Confirmed) Active Major depression with psycho tic features(Confirmed) Active Obese class I(Confirmed) Active Post traumatic stress disord er (PTSD)(Confirmed) Active Social History Social History Type Response Smoking Status Never (less than 100 in lifetime) entered on: 04/12/21 Sex Care Team Personnel Name: Elana Jones MD Address: [address] [place] [address] [facility] [place], [place] [address]
--- OUTSIDE RECORDS SUMMARY | 2023-05-10 18:03 | XMS_ITS | Continuity of Care Document ---
Author Name Unknown Organization [facility] Pediatric E ndocrinology Address [address] [place] [address]- Care Team Providers Care Personal Counselor Name Role Phone Elana Jones MD Primary Care Physician En[place] [facility] [place](s): 01/21/22 - 02/20/22 [facility] Pediatric Endocrinology [address] [place] [phone]- [place] Allergies, Adverse Reactions, Alerts No Known [...] 08/17/21 14:13:00 EDT, Route to Pharmacy Electronically, [facility]/pharmacy #[id number], Partial fill upon patient request if the prescription is for a schedule II opioid drug... Start Date: 08/17/21 Stop Date: 08/31/21 Status: Ordered testosterone cypionate 200 mg/mL intramuscular solution See Instructions, 40mg (0.2ml) subcutaneously every 7 days., # 4 each, 2 Refills, Maintenance, 02/10/22 10:22:00 EDT, [facility] Home Delivery, Partial fill upon [...] Sex Patient Care team information Personnel Name: Elana Jones MD Address: Address: [address] [place] [address] [facility] [place] [address]
--- OUTSIDE RECORDS SUMMARY | 2023-05-10 18:03 | XMS_ITS | Continuity of Care Document ---
Author Name Unknown Organization [facility] Pediatric E ndocrinology Address [address] [place] [address]- Care Team Providers Care Loom Stop Checker Name Role Phone Elana Jones MD Primary Care Physician [place] [facility] [place]/21[place]22 - 02/20/22 [facility] Endocrinology [address] [place] [phone]- [place] Allergies, Adverse Reactions, Alerts No Known [...] 14:13:00 EDT, Route to Pharmacy Electronically, [facility]/pharmacy #[id number], Partial fill upon patient request if the prescription is for a schedule II opioid drug... Start Date: 08/17/21 Stop Date: 08/31/21 Status: Ordered testosterone cypionate 200 mg/mL intramuscular solution See Instructions, 40mg (0.2ml) subcutaneously every 7 days., # 4 each, 2 Refills, Maintenance, 02/10/22 10:22:00 EDT, [facility] Home Delivery, Partial fill [...] Personnel Name: Karen BIRD, Elana Address: Address: [address] [place] [address] [facility] [place], [place] [address]
--- OUTSIDE RECORDS SUMMARY | 2023-05-10 18:03 | XMS_ITS | Continuity of Care Document ---
Author Name Unknown Organization [facility] Pediatric E ndocrinology Address [address] [place] [address]- Care Team Providers Care Parent Partner Name Role Phone Elana Jones MD Primary Care Physician [place] [facility] [place] - 02/21/22 [facility] Pediatric Endocrinology [address] [place] [phone]- [place] Allergies, Adverse Reactions, Alerts No Known [...] 08/17/21 14:13:00 EDT, Route to Pharmacy Electronically, [facility]/pharmacy #[id number], Partial fill upon patient request if the prescription is for a schedule II opioid drug... Start Date: 08/17/21 Stop Date: 08/31/21 Status: Ordered testosterone cypionate 200 mg/mL intramuscular solution See Instructions, 40mg (0.2ml) subcutaneously every 7 days., # 4 each, 2 Refills, Maintenance, 02/10/22 10:22:00 EDT, [facility] Home Delivery, Partial fill upon [...] Personnel Name: Karen BIRD, Elana Address: Address: [address] [place] [address] [facility] [place], [place] [address]
--- OUTSIDE RECORDS SUMMARY | 2023-05-10 18:03 | XMS_ITS | Continuity of Care Document ---
Author Name Unknown Organization [facility] Pediatric E ndocrinology Address [address] [place] [address]- Care Team Providers Care Trout Farmer Name Role Phone Elana Jones MD Primary Care Physician En[place] [facility] [place] Date(s): 11/01/22 - 12/01/22 [facility] Endocrinology [address] [place] [phone]- [place] Allergies, Adverse Reactions, Alerts No Known [...] 08/17/21 14:13:00 EDT, Route to Pharmacy Electronically, [facility]/pharmacy #[id number], Partial fill upon patient request if the prescription is for a schedule II opioid drug... Start Date: 08/17/21 Stop Date: 08/31/21 Status: Ordered testosterone cypionate 200 mg/mL intramuscular solution See Instructions, 50mg (0.25ml) subcutaneously every 7 days., # 4 each, 3 Refills, Maintenance, 08/03/22 15:49:00 EDT, [id number], Dose increase. Single-dose vials., 162, cm, 01/05/22 [...] Team Personnel Name: Elana Jones MD Position: [facility] Physician - Pediatrics Member Role: PCP Address: Address: [address] [place] [address] [place] [address]- Care Team Related Persons Name: NIYAH ESCALERA Address: home [address] [place] [phone] Name: BUDDY OSHEA Address: [place] [address]
--- OUTSIDE RECORDS SUMMARY | 2023-05-10 18:03 | XMS_ITS | Continuity of Care Document ---
Author Name Unknown Organization [facility] Address [address] [place] [address]- Care Team Providers Care Multiple Cut Off Saw Operator Name Role Phone Elana Jones MD Primary Care Physician En[place] [facility] [place] Date(s): 11/28/20 - 02/21/[address] [address]- Encounter Diagnosis Major depressive disorder, recurrent, moderate(Final) - Discharge Disposition: A-D/C Home Attending Physician: Tj Fine MD Admitting Physician: Tj Fine MD Referring Physician: Not on Staff, Referring MD Allergies, Adverse Reactions, Alerts No Known Medication Allergies Medications Abilify 15 mg oral tablet 15 mg, 1, tablet, By Mouth, Daily, Refills 0, Maintenance, 10/28/20 15:28:00 EDT, Partial fill uponpatient request if the prescription is for a schedule II opioid drug. Start Date: 10/28/20 Status: Ordered Lexapro 20 mg oral tablet See Instructions, 1.5 tablet By Mouth Daily, 0 Refills, Maintenance, 11/28/20 13:49:00 EDT, Tablet,Partial fill upon patient request if the prescription is for a schedule II opioid drug. Start Date: 11/28/20 Status: Ordered prazosin 1 mg oral capsule 1 mg, 1, capsule, By Mouth, Daily at bedtime, # 30 capsule, Refills 0, Tot. Refills 0, Maintenance,12/16/20 10:39:00 EDT, Route to Pharmacy Electronically, [facility]/pharmacy #[id number], Partial fill upon patient request if the prescription is for a schedule II... Start Date: 12/16/20 Status: Ordered Problem List Condition Effective Dates Status Health Status Inform ant Gender dysphoria(Confirmed) Active Major depression with psycho tic features(Confirmed) Active Post traumatic stress disord er (PTSD)(Confirmed) Active Vital Signs Most recent to oldest [Reference Range]: 1 Sensory deficits None (11/28/20 1:46 PM) Social History Social History Type Response Smoking Status Never (less than 100 in lifetime) entered on: 07/08/20 Sex
--- OUTSIDE RECORDS SUMMARY | 2023-05-10 18:03 | XMS_ITS | Continuity of Care Document ---
Author Name Unknown Organization [facility] Pediatric E ndocrinology Address [address] [place] [address]- Care Team Providers Care Matcher Offbearer Name Role Phone Elana Jones MD Primary Care Physician [place] [facility] [place] Date(s): 01/19/22 - 02/18/22 [facility] Pediatric Endocrinology [address] [place] [phone]- [place] Allergies, Adverse Reactions, Alerts No Known [...] Route to Pharmacy Electronically, [facility]/pharmacy #[id number], Partial fill upon patient request if the prescription is for a schedule II opioid drug... Start Date: 08/17/21 Stop Date: 08/31/21 Status: Ordered testosterone cypionate 200 mg/mL intramuscular solution See Instructions, 40mg (0.2ml) subcutaneously every 7 days., # 4 each, 2 Refills, Maintenance, 02/10/22 10:22:00 EDT, [facility] Home Delivery, Partial fill upon [...] Personnel Name: Elana Jones MD Address: Address: [address] [place] [address] [facility] [place] [address]
--- OUTSIDE RECORDS SUMMARY | 2023-05-10 18:03 | XMS_ITS | Continuity of Care Document ---
Author Name Unknown Organization [facility] Pediatric E ndocrinology Address [address] [place] [address]- Care Team Providers Care Data Security Coordinator Name Role Phone Elana Jones MD Primary Care Physician Encounter [facility] [place] Date(s): 02/08/23 - 03/10/23 [facility] Pediatric Endocrinology [address] [place] [address]- Attending Physician: Yanira Carias Admitting Physician: AdmYanira vera Referring Physician: Admtr, Ar8 Allergies, Adverse Reactions, Alerts No Known Allergies [...] Route to Pharmacy Electronically, [facility]/pharmacy #[id number], Partial fill upon patient request if the [...] Team Personnel Name: Elana Jones MD Position: [facility] Physician - Pediatrics Member Role: PCP Address: Address: [address] [place] [address] [facility] [place], [place] [address] Care Team Related Persons Name: JW, NIYAH Address: home [address] [place] [phone] Name: BUDDY OSHEA Address: [place] [address]
--- OUTSIDE RECORDS SUMMARY | 2023-05-10 18:03 | XMS_ITS | Continuity of Care Document ---
Author Name Unknown Organization [facility] Pediatric E ndocrinology Address [address] [place] [address]- Care Team Providers Care Supervisor Crack Off Name Role Phone Elana Jones MD Primary Care Physician En[place] [facility] [place] Date(s): 12/01/21 - 12/31/21 [facility] Pediatric Endocrinology [address] [place] [phone]- [place] Allergies, Adverse Reactions, Alerts No Known [...] Route to Pharmacy Electronically, [facility]/pharmacy #[id number], Partial fill upon patient request if the prescription is for a schedule II opioid drug... Start Date: 08/17/21 Stop Date: 08/31/21 Status: Ordered testosterone cypionate 200 mg/mL intramuscular solution See Instructions, 40mg (0.2ml) subcutaneously every 7 days, # 4 each, 3 Refills, Maintenance, 12/22/21 12:25:00 EDT, [id number], Partial fill upon patient request if the [...] Team Personnel Name: Elana Jones MD Address: [address] [place] [address] [facility] [place], [place] [address]
--- OUTSIDE RECORDS SUMMARY | 2023-05-10 18:03 | XMS_ITS | Continuity of Care Document ---
Author Name Unknown Organization [facility] Endocrinolo gy and Diabetes Address [address] [place] [address]- Care Team Providers Care Ribbon Weaver Name Role Phone Elana Jones MD Primary Care Physician En[place] [facility] [place] Date(s): 02/08/22 - 03/10/22 [facility] Endocrinology and Diabetes [address] [place] [phone] Allergies, Adverse Reactions, Alerts No [...] 08/17/21 14:13:00 EDT, Route to Pharmacy Electronically, [facility]/pharmacy #[id number], Partial fill upon patient request if the prescription is for a schedule II opioid drug... Start Date: 08/17/21 Stop Date: 08/31/21 Status: Ordered testosterone cypionate 200 mg/mL intramuscular solution See Instructions, 40mg (0.2ml) subcutaneously every 7 days., # 4 each, 2 Refills, Maintenance, 02/10/22 10:22:00 EDT, [facility] Home Delivery, Partial fill [...] Personnel Name: Elana Jones MD Address: Address: [address] [place] [address] [facility] [place], [place] [address]
--- OUTSIDE RECORDS SUMMARY | 2023-05-10 18:03 | XMS_ITS | Continuity of Care Document ---
Author Name Unknown Organization [facility] Address [address] [place] [address]- Care Team Providers Care Transitions Rn Care Coordinator Name Role Phone Elana Jones MD Primary Care Physician En[place] [facility] [place] Date(s): 01/12/23 - 02/11/23 [facility] [address] [place] [phone] Allergies, Adverse [...] Electronically, [facility]/pharmacy #[id number], Partial fill upon patient request if the [...] MD Position: [facility] Physician - Pediatrics Member Role: PCP Address: Address: [address] [place] [address] [facility] [place] [address]- Care Team Related Persons Name: NIYAH ESCALERA Address: home [address] [place] [address] Name: BUDDY OSHEA Address: [place] [address]
--- OUTSIDE RECORDS SUMMARY | 2023-05-10 18:03 | XMS_ITS | Continuity of Care Document ---
Author Name Unknown Organization [facility] Pediatric E ndocrinology Address [address] [place] [address]- Care Team Providers Care Head Athletic Trainer Name Role Phone Elana Jones MD Primary Care Physician Encounter [facility] [place] Date(s): 12/21/21 - 01/20/22 [facility] Pediatric Endocrinology [address] [place] [phone]- [place] Allergies, Adverse Reactions, Alerts No Known [...] Route to Pharmacy Electronically, [facility]/pharmacy #[id number], Partial fill upon patient request if the prescription is for a schedule II opioid drug... Start Date: 08/17/21 Stop Date: 08/31/21 Status: Ordered testosterone cypionate 200 mg/mL intramuscular solution See Instructions, 40mg (0.2ml) subcutaneously every 7 days., # 4 each, 3 Refills, Maintenance, 01/20/22 9:57:00 EDT, [id number], Partial fill upon patient request if the [...] Team Personnel Name: Elana Jones MD Address: [address] [place] [address] [facility] [place], [place] [address]
--- OUTSIDE RECORDS SUMMARY | 2023-05-10 18:03 | XMS_ITS | Continuity of Care Document ---
Author Name Unknown Organization [facility] ndocrinology Address [address] [place] [address]- Care Team Providers Care Fiberglass Tube Molder Name Role Phone Elana Jones MD Primary Care Physician Encounter [facility] [place] Date(s): 10/12/21 - 11/11/21 [facility] [address] [place] [phone]- [place] Allergies, Adverse Reactions, Alerts No Known [...] 08/17/21 14:13:00 EDT, Route to Pharmacy Electronically, [facility]/pharmacy #[id number], Partial fill upon patient request if the prescription is for a schedule II opioid drug... Start Date: 08/17/21 Stop Date: 08/31/21 Status: Ordered testosterone 25 mg/2.5 g (1%) transdermal gel 1 pack/packet, Topically, Daily, apply to clean, dry, intact skin wash hands thoroughly after application, # 30 each, 5 Refills, Maintenance, 11/10/21 12:21:00 EDT, [facility]/pharmacy #[id number], Partial fill upon patient request if the prescription is for a sc... Start Date: 11/10/21 Status: Ordered Problem List Condition Effective Dates Status Health Status Inform ant Gender dysphoria(Confirmed) Active Major depression with psycho tic features(Confirmed) Active Post traumatic stress disord er (PTSD)(Confirmed) Active Social History Social History Type Response Smoking Status Never (less than 100 in lifetime) entered on: 04/12/21 Sex
--- OUTSIDE RECORDS SUMMARY | 2023-05-10 18:04 | XMS_ITS | Continuity of Care Document ---
Author Name Unknown Organization [facility] Address [address] [place] [address]- Care Team Providers Care Dragline Oiler Name Role Phone Elana Jones MD Primary Care Physician Encounter [facility] [place] Date(s): 12/21/21 - 01/20/22 [facility] [address] [place] [phone]- [place] Allergies, Adverse Reactions, Alerts No Known [...] 08/17/21 14:13:00 EDT, Route to Pharmacy Electronically, [facility]/pharmacy #[id number], Partial fill upon patient request if the prescription is for a schedule II opioid drug... Start Date: 08/17/21 Stop Date: 08/31/21 Status: Ordered testosterone cypionate 200 mg/mL intramuscular solution See Instructions, 40mg (0.2ml) subcutaneously every 7 days., # 4 each, 3 Refills, Maintenance, 01/20/22 9:57:00 EDT, [facility]/pharmacy #[id number], Partial fill upon patient request if the [...] Team Personnel Name: Elana Jones MD Address: [address] [place] [address] [facility] [place], [place] [address]
--- OUTSIDE RECORDS SUMMARY | 2023-05-10 18:04 | XMS_ITS | Continuity of Care Document ---
Author Name Unknown Organization [facility] ndocr[facility]ology Address [address] [place] [address]- Care Team Providers Care Damage Cutter Name Role Phone Elana Jones MD Primary Care Physician Encounter [facility] [place] Date(s): 02/15/22 - 03/17/22 [facility] [address] [place] [phone]- [place] Allergies, Adverse Reactions, Alerts No Known [...] 08/17/21 14:13:00 EDT, Route to Pharmacy Electronically, [facility]/pharmacy #[id number], Partial fill upon patient request if the prescription is for a schedule II opioid drug... Start Date: 08/17/21 Stop Date: 08/31/21 Status: Ordered testosterone cypionate 200 mg/mL intramuscular solution See Instructions, 40mg (0.2ml) subcutaneously every 7 days., # 4 each, 2 Refills, Maintenance, 02/10/22 10:22:00 EDT, [facility], Partial fill upon patient [...] Team Personnel Name: Elana Jones MD Position: [facility] General Pediatrics MD Member Role: PCP Address: Address: [address] [place] [address] [facility] [place] [address]- Care Team Related Persons Name: NIYAH ESCALERA Address: home [address] [place] [address] Name: BUDDY OSHEA Address: [place] [address]
--- OUTSIDE RECORDS SUMMARY | 2023-05-10 18:04 | XMS_ITS | Continuity of Care Document ---
Author Name Unknown Organization [facility] nd[facility] Address [address] [place] [address]- Care Team Providers Care Surfacing Machine Operator Name Role Phone Elana Jones MD Primary Care Physician [id number] Date(s): 09/09/21 - 10/09/21 [facility] [address] [place] [phone]- [place] Allergies, Adverse Reactions, Alerts No Known [...] 08/17/21 14:13:00 EDT, Route to Pharmacy Electronically, [facility]/pharmacy #[id number], Partial fill upon patient request if the [...]
--- OUTSIDE RECORDS SUMMARY | 2023-05-10 18:04 | XMS_ITS | Continuity of Care Document ---
Author Name Unknown Organization [facility] ndocrinology Address [address] [place] [address]- Care Team Providers Care Rug Hooker Hand Name Role Phone Elana Jones MD Primary Care Physician [place] [facility] [place] 11/11/21 - 12/11/21 [facility] [address] [place] [phone]- [place] Allergies, Adverse Reactions, Alerts No Known [...] 08/17/21 14:13:00 EDT, Route to Pharmacy Electronically, [facility]/pharmacy #[id number], Partial fill upon patient request if the prescription is for a schedule II opioid drug... Start Date: 08/17/21 Stop Date: 08/31/21 Status: Ordered testosterone cypionate 200 mg/mL intramuscular solution See Instructions, 40mg (0.2ml) subcutaneously Every 7 days, # 4 each, 5 Refills, Maintenance, 11/16/21 9:55:00 EDT, [id number], Partial fill upon patient request if the [...]
--- OUTSIDE RECORDS SUMMARY | 2023-05-10 18:04 | XMS_ITS | Continuity of Care Document ---
Author Name Unknown Organization [facility] Pediatric E ndocrinology Address [address] [place] [address]- Care Team Providers Care Instructional Support Technician Name Role Phone Elana Jones MD Primary Care Physician En[place] [facility] [place] Date(s): 09/17/21 - 10/17/21 [facility] Endocr[facility]ology [address] [place] [address]- [place] Allergies, Adverse Reactions, Alerts No Known [...] 08/17/21 14:13:00 EDT, Route to Pharmacy Electronically, [facility]/pharmacy #[id number], Partial fill upon patient request if the [...]
--- OUTSIDE RECORDS SUMMARY | 2023-05-10 18:04 | XMS_ITS | Continuity of Care Document ---
Author Name Unknown Organization [facility] ndocr[facility] Address [address] [place] [address]- Care Team Providers Care Expediter Name Role Phone Elana Jones MD Primary [id number] Date(s): 09/17/21 - 10/17/21 [facility] Endocr[facility]ology [address] [place], [place] [phone]- [place] Allergies, Adverse Reactions, Alerts No Known [...] 14:13:00 EDT, Route to Pharmacy Electronically, [facility]/pharmacy #[id number], Partial fill upon patient request if the [...]
--- OUTSIDE RECORDS SUMMARY | 2023-05-10 18:04 | XMS_ITS | Continuity of Care Document ---
Author Name Unknown Organization [facility] ndocrinology Address [address] [place] [address]- Care Team Providers Care Decoration Checker Name Role Phone Elana Jones MD Primary Care Physician Encounter [facility] [place] Date(s): 11/05/21 - 12/05/21 [facility] [address] [place] [phone]- [place] Allergies, Adverse Reactions, Alerts No Known [...] 08/17/21 14:13:00 EDT, Route to Pharmacy Electronically, [facility]/pharmacy #[id number], Partial fill upon patient request if the prescription is for a schedule II opioid drug... Start Date: 08/17/21 Stop Date: 08/31/21 Status: Ordered testosterone cypionate 200 mg/mL intramuscular solution See Instructions, 40mg (0.2ml) subcutaneously Every 7 days, # 4 each, 5 Refills, Maintenance, 11/16/21 9:55:00 EDT, [id number], Partial fill upon patient request if the [...]
--- OUTSIDE RECORDS SUMMARY | 2023-05-10 18:04 | XMS_ITS | Continuity of Care Document ---
Author Name Unknown Organization [facility] ndocrinology Address [address] [place] [address]- Care Team Providers Care Minister Assistant Name Role Phone Elana Jones MD Primary Care Physician Encounter [facility] [place] Date(s): 05/04/22 - 06/03/22 [facility] Endocr[facility]ology [address] [place] [address]- [place] Allergies, Adverse Reactions, Alerts No Known [...] 08/17/21 14:13:00 EDT, Route to Pharmacy Electronically, [facility]/pharmacy #[id number], Partial fill upon patient request if the prescription is for a schedule II opioid drug... Start Date: 08/17/21 Stop Date: 08/31/21 Status: Ordered testosterone cypionate 200 mg/mL intramuscular solution See Instructions, 50mg (0.25ml) subcutaneously every 7 days., # 4 each, 3 Refills, Maintenance, 04/08/22 8:55:00 [facility], [facility] Home Delivery, Dose increase. Single-dose vials., [...] Team Personnel Name: Elana Jones MD Position: [facility] General Pediatrics MD Member Role: PCP Address: Address: [address] [place] [address] [place] [address]- Care Team Related Persons Name: NIYAH ESCALERA Address: home [address] [place] [phone] Name: BUDDY OSHEA Address: [place] [address]
--- OUTSIDE RECORDS SUMMARY | 2023-05-10 18:04 | XMS_ITS | Continuity of Care Document ---
Author Name Unknown Organization [facility] E ndocrinology Address [address] [place] [address]- Care Team Providers Care Mounted Police Officer Name Role Phone Elana Jones MD Primary Care Physician Encounter [facility] [place] Date(s): 04/07/22 - 05/07/22 [facility] Endocr[facility]ology [address] [place] [address]- [place] Allergies, Adverse Reactions, Alerts No Known [...] 14:13:00 EDT, Route to Pharmacy Electronically, [facility]/pharmacy #[id number], Partial fill upon patient request if the prescription is for a schedule II opioid drug... Start Date: 08/17/21 Stop Date: 08/31/21 Status: Ordered testosterone cypionate 200 mg/mL intramuscular solution See Instructions, 50mg (0.25ml) subcutaneously every 7 days., # 4 each, 3 Refills, Maintenance, 04/08/22 8:55:00 [facility], [employer] [employer] [facility] [employer] [facility] Home Delivery, Dose increase. Single-dose vials., [...] Team Personnel Name: Elana Jones MD Position: [facility] General Pediatrics MD Member Role: PCP Address: Address: [address] [place] [address] [place] [address]- Care Team Related Persons Name: NIYAH ESCALERA Address: home [address] [place] [phone] Name: BUDDY OSHEA Address: [place] [address]
--- OUTSIDE RECORDS SUMMARY | 2023-05-10 18:04 | XMS_ITS | Continuity of Care Document ---
Author Name Unknown Organization [facility] ndocr[facility] Address [address] [place] [address]- Care Team Providers Care Fire Management Officer Name Role Phone Elana Jones MD Primary Care Physician Encounter [facility] [place] Date(s): 05/04/22 - 06/03/22 [facility] Endocrinology [address] [place] [phone]- Attending Physician: Admtr, Killian8 Admitting Physician: Admtr, Ar8 Referring Physician: Admtr, Ar8 Allergies, Adverse Reactions, [...] 08/17/21 14:13:00 EDT, Route to Pharmacy Electronically, [facility]/pharmacy #[id number], Partial fill upon patient request if the prescription is for a schedule II opioid drug... Start Date: 08/17/21 Stop Date: 08/31/21 Status: Ordered testosterone cypionate 200 mg/mL intramuscular solution See Instructions, 50mg (0.25ml) subcutaneously every 7 days., # 4 each, 3 Refills, Maintenance, 04/08/22 8:55:00 [facility], [facility] Home Delivery, Dose increase. Single-dose vials., [...] Team Personnel Name: Elana Jones MD Position: [facility] General Pediatrics MD Member Role: PCP Address: Address: [address] [place] [address] [facility] [place] [address]- Care Team Related Persons Name: NIYAH ESCALERA Address: home [address] [place] [phone] Name: BUDDY OSHEA Address: [place] [address]
--- OUTSIDE RECORDS SUMMARY | 2023-05-10 18:04 | XMS_ITS | Continuity of Care Document ---
Author Name Unknown Organization [facility] Address [address] [place] [address]- Care Team Providers Care Leave Manager Name Role Phone Elana Jones MD Primary Care Physician Encounter [facility] [place] Date(s): 01/17/23 - 02/16/23 [facility] [address] [place] [address] Allergies, Adverse Reactions, Alerts No Known Allergies [...] Route to Pharmacy Electronically, [facility]/pharmacy #[id number], Partial fill upon patient request if [...] Team Personnel Name: Elana Jones MD Position: [facility] Physician - Pediatrics Member Role: PCP Address: Address: [address] [place] [address] [place] [address]- Care Team Related Persons Name: NIYAH ESCALERA Address: home [address] [place] [address] Name: BUDDY OSHEA Address: [place] [address]
--- OUTSIDE RECORDS SUMMARY | 2023-05-10 18:04 | XMS_ITS | Continuity of Care Document ---
Author Name Unknown Organization [facility] Pediatric E ndocrinology Address [address] [place] [address]- Care Team Providers Care Express Manager Name Role Phone Elana Jones MD Primary Care Physician [place] [facility] [place] Date(s): 06/29/22 - 07/29/22 [facility]ocr[facility] [address] [place] [phone]- [place] Allergies, Adverse Reactions, Alerts No Known [...] Route to Pharmacy Electronically, [facility]/pharmacy #[id number], Partial fill upon patient request if the prescription is for a schedule II opioid drug... Start Date: 08/17/21 Stop Date: 08/31/21 Status: Ordered testosterone cypionate 200 mg/mL intramuscular solution See Instructions, 50mg (0.25ml) subcutaneously every 7 days., # 4 each, 3 Refills, Maintenance, 04/08/22 8:55:00 [facility], [facility] Home Delivery, Dose increase. Single-dose vials., [...] Team Personnel Name: Elana Jones MD Position: [facility] General Pediatrics MD Member Role: PCP Address: Address: [address] [place] [address] [place] [address]- Care Team Related Persons Name: NIYAH ESCALERA Address: home [address] [place] [phone] Name: BUDDY OSHEA Address: [place] [address]
--- OUTSIDE RECORDS SUMMARY | 2023-05-10 18:04 | XMS_ITS | Continuity of Care Document ---
Author Name Unknown Organization [facility] E ndocrinology Address [address] [place] [address]- Care Team Providers Care Kiln Labourer Name Role Phone Elana Jones MD Primary Care Physician En[place] [facility] [place] Date(s): 12/18/21 - 01/17/22 [facility] Endocrinology [address] [place] [address]- [place] Allergies, Adverse Reactions, Alerts No Known [...] to Pharmacy Electronically, [facility]/pharmacy #[id number], Partial fill upon patient request if the prescription is for a schedule II opioid drug... Start Date: 08/17/21 Stop Date: 08/31/21 Status: Ordered testosterone cypionate 200 mg/mL intramuscular solution See Instructions, 40mg (0.2ml) subcutaneously every 7 days, # 4 each, 3 Refills, Maintenance, 12/22/21 12:25:00 EDT, [facility]/pharmacy #[id number], Partial fill upon patient request if the [...] Team Personnel Name: Elana Jones MD Address: [address] [place] [address] [facility] [place], [place] [address]
--- OUTSIDE RECORDS SUMMARY | 2023-05-10 18:04 | XMS_ITS | Continuity of Care Document ---
Author Name Unknown Organization [facility] Pediatric E ndocrinology Address [address] [place] [address]- Care Team Providers Care General Doc Name Role Phone Elana Jones MD Primary Care Physician [place] [facility] [place] 11/16/21 - 12/16/21 [facility] Endocr[facility] [address] [place] [phone]- [place] Allergies, Adverse Reactions, Alerts No Known [...] 08/17/21 14:13:00 EDT, Route to Pharmacy Electronically, [facility]/pharmacy #[id number], Partial fill upon patient request if the prescription is for a schedule II opioid drug... Start Date: 08/17/21 Stop Date: 08/31/21 Status: Ordered testosterone cypionate 200 mg/mL intramuscular solution See Instructions, 40mg (0.2ml) subcutaneously Every 7 days, # 4 each, 5 Refills, Maintenance, 11/16/21 9:55:00 EDT, [facility]/pharmacy #[id number], Partial fill upon patient request if the [...]
--- OUTSIDE RECORDS SUMMARY | 2023-05-10 18:04 | XMS_ITS | Continuity of Care Document ---
Author Name Unknown Organization [facility] Pediatric E ndocrinology Address [address] [place] [address]- Care Team Providers Care Home Restoration Service Supervisor Name Role Phone Elana Jones MD Primary Care Physician [place] [facility] [place](s): 03/09/22 - 04/08/22 [facility] Pediatric Endocrinology [address] [place] [address]- [place] Allergies, Adverse Reactions, Alerts No Known [...] 08/17/21 14:13:00 EDT, Route to Pharmacy Electronically, [facility]/pharmacy #[id number], Partial fill upon patient request if the prescription is for a schedule II opioid drug... Start Date: 08/17/21 Stop Date: 08/31/21 Status: Ordered testosterone cypionate 200 mg/mL intramuscular solution See Instructions, 50mg (0.25ml) subcutaneously every 7 days., # 4 each, 3 Refills, Maintenance, 04/08/22 8:55:00 [facility], [facility] Home Delivery, Dose increase. Single-dose vials., [...] Elana Jones MD Position: [facility] General Pediatrics MD Member Role: PCP Address: Address: [address] [place] [address] [place] [address]- Care Team Related Persons Name: NIYAH ESCALERA Address: home [address] [place] [phone] Name: BUDDY OSHEA Address: [place] [address]
[2023-05-10 18:06] LABS: Basophils Percent Auto 0.3 % (0-2); Eosinophils Percent Auto 0.2 % (0-4); Hematocrit 45.9 % (37.0-47.0); Hemoglobin 15.4 g/dl (12.0-16.0); Imm Gran Abs Auto 0.12 X10*3/uL (0.00-0.03); Imm Gran Pct Auto 1.1 % (0.0-0.4); Lymphocytes Absolute Auto 1.9 X10*3/uL (1.2-4.9); Lymphocytes Percent Auto 17.1 % (20-40); Mean Corpuscular HGB Conc 33.6 g/dl (31.0-35.0); Mean Corpuscular Hemoglobin 27.1 pg (27.0-33.0); Mean Corpuscular Volume 80.8 fL (80.0-98.0); Mean Platelet Volume 10.2 fL (9.4-12.3); Monocytes Absolute Auto 0.4 X10*3/uL (0.1-1.2); Monocytes Percent Auto 3.3 % (2-11); Neutrophils Absolute Auto 8.8 x10*3/uL (2.0-8.3); Platelet Count 391 X10*3/uL (160-400); Red Blood Count 5.68 X10*6/uL (4.20-5.50); Red Cell Distribution Width 13.3 % (11.0-16.0); White Blood Count 11.3 X10*3/uL (4.8-10.8)
[2023-05-10 18:17] LABS: Alanine Aminotransferase 27 U/L (0-31); Albumin Level 4.7 g/dL (3.5-5.0); Alkaline Phosphatase 128 U/L (39-117); Anion Gap 16 (12-20); Aspartate Amino Transferase 22 U/L (5-31); Bilirubin Direct 0.1 mg/dL (0.0-0.5); Bilirubin Total 0.3 mg/dL (0.0-1.0); Blood Urea Nitrogen 9 mg/dL (9-16); Calcium 9.6 mg/dL (8.4-10.2); Carbon Dioxide 24 mmol/L (22-29); Chloride 107 mmol/L (96-108); Creatinine Clr Calc Pharmacy 124.5; Estimated Glomerular Filt Rate > 60; Glucose Random 86 mg/dL (60-115); Lipase 22 U/L (8-78); Potassium 3.9 mmol/L (3.3-5.1); Sodium 143 mmol/L (135-145); Total Protein 9.1 g/dL (6.5-8.0)
--- NOTE | 2023-05-11 01:55 | ED.ABDPAIN ---
HPI - Abdominal Pain General Chief Complaint: Abdominal Pain Stated Complaint: ABD PAIN X2 WKS,NAUSEA,DIARRHEA PER EMS Time Seen by Provider: 05/11/23 01:13 Source: patient Mode of arrival: ambulatory History of Present Illness HPI narrative: 23-year-old patient who presents with 2 weeks of upper/epigastric abdominal discomfort without associated fever, chills and reports nausea but no vomiting and no diarrhea. Otherwise, denies dysuria. Related Data Home Medications Medication Instructions Recorded Confirmed aripiprazole 15 mg tablet 7.5 tab PO DAILY 11/01/20 11/12/20 clonidine HCl 0.1 mg tablet 1 tab PO BID PRN Anxiety 11/01/20 11/12/20 escitalopram oxalate 20 mg tablet 1 tab PO DAILY 11/01/20 11/12/20 pantoprazole 40 mg tablet,delayed 1 tab PO DAILY 11/01/20 11/12/20 release Previous Rx's Medication Instructions Recorded famotidine 20 mg tablet 20 mg PO BEDTIME #14 tabs 05/11/23 Allergies Allergy/AdvReac Type Severity Reaction Status Date / Time No Known Allergies Allergy Verified 11/12/20 15:58 [No Known Allergies*] Review of Systems Review of Systems For positives and negatives as stated in HPI PMFSH Past Medical History Source: nursing notes reviewed Onset Date is defined in the Problem List Problems that require an onset date and time if occurred within 24 hrs of arrival to the ED Aortic Dissection and Rupture; Neurologic impairment; Cardiopulmonary Arrest; Endotracheal Intubation; Insertion or Replacement of Mechanical Circulatory Assist Device Medical History Acute depression Social History Social History Alcohol intake: unknown Patient Tobacco Use Status: Never used Tobacco Smoked in Last 30 Days: No Use of substances other than those prescribed or required for medical reasons: No Advance Directives: No Advance Directives Information Provided: No Patient : No Physical Exam ED Vital Signs: Vital Signs - 24 hr 05/10/23 14:23 05/11/23 02:08 Temperature 98.0 F Pulse Rate 93 68 Respiratory Rate 18 16 Blood Pressure 141/78 H 114/61 Pulse Oximetry 97 Oxygen Delivery Method Room Air BMI result Body Mass Index 32.4 VITAL SIGNS: Reviewed. GENERAL: Well developed, well nourished, in no acute distress. HEAD: Normocephalic/atraumatic EYES: PERRLA, EOMI EARS: Ext canals without abnormality LUNGS: Normal breath sounds. No adventitious sounds or accessory muscle use. SpO2<97> CARDIOVASCULAR: Regular rate and rhythm without noted murmurs ABDOMEN: Soft, non-tender, non-distended with bowel sounds. MUSCULOSKELETAL: No tenderness, deformities, or effusions noted on gross inspection. EXTREMITIES: No cyanosis, clubbing or edema. SKIN: Inspection of the skin reveals no rashes NEUROLOGIC: Alert and oriented x 4. Strength and sensation to light touch were grossly intact x 4. Medical Decision Making Medical Decision Making [facility] Narrative: 23-year-old patient with history and clinical presentation, DDX: Gastritis, doubt pancreatitis or cholecystitis, doubt UTI. Reviewed all investigations and hematologic indices demonstrated not infectious reactive leukocytosis with left shift, no anemia or thrombocytopenia. Chemistry is sees are grossly within normal limits without ANIKA and no electrolyte or liver enzyme derangements, there is a mild increase in alkaline phosphatase noted, beta hCG is undetectable. CT of the abdomen does not demonstrate cholecystitis. Patient received Pepcid and was discharged home with diagnosis of gastritis and a course of antacid. Differential Diagnosis Differential Diagnoses: The differential diagnosis associated with the presentation includes Please see the discussion above Admission/Observation Consideration of admission/observation: Escalation of care including admission/observation considered Please see the discussion above Lab Data [facility] Lab Attestation statement: I reviewed the patient's lab results. Please see the discussion above 05/10/23 17:53 05/10/23 17:53 Labs: Lab Results 05/10/23 Range/Units 17:53 WBC 11.3 H (4.8-10.8) X10*3/uL RBC 5.68 H (4.20-5.50) X10*6/uL Hgb 15.4 (12.0-16.0) g/dl Hct 45.9 (37.0-47.0) % MCV 80.8 (80.0-98.0) fL MCH 27.1 (27.0-33.0) pg MCHC 33.6 (31.0-35.0) g/dl RDW 13.3 (11.0-16.0) % Plt Count 391 (160-400) X10*3/uL MPV 10.2 (9.4-12.3) fL Immature Gran % (Auto) 1.1 H (0.0-0.4) % Neut % (Auto) 78.0 H (45-73) % Lymph % (Auto) 17.1 L (20-40) % Otero % (Auto) 3.3 (2-11) % Eos % (Auto) 0.2 (0-4) % Baso % (Auto) 0.3 (0-2) % Lymph # (Auto) 1.9 (1.2-4.9) X10*3/uL Otero # (Auto) 0.4 (0.1-1.2) X10*3/uL Eos # (Auto) 0.0 (0.0-0.4) X10*3/uL Baso # (Auto) 0.0 (0.0-0.2) X10*3/uL Abs Immat Gran (auto) 0.12 H (0.00-0.03) X10*3/uL Absolute Neuts (auto) 8.8 H (2.0-8.3) x10*3/uL Absolute Nucleated RBC 0.000 (0.0-0.012) X10*3/uL Nucleated RBC % (auto) 0.0 (0.0-0.2) /100WBC Sodium 143 (135-145) mmol/L Potassium 3.9 (3.3-5.1) mmol/L Chloride 107 (96-108) mmol/L Carbon Dioxide 24 (22-29) mmol/L Anion Gap 16 (12-20) BUN 9 (9-16) mg/dL Creatinine 0.75 (0.5-1.4) mg/dL Estim Creat Clear Calc 124.5 Estimated GFR > 60 Random Glucose 86 (60-115) mg/dL Calcium 9.6 D (8.4-10.2) mg/dL Total Bilirubin 0.3 (0.0-1.0) mg/dL Direct Bilirubin 0.1 (0.0-0.5) mg/dL AST 22 (5-31) U/L ALT 27 (0-31) U/L Alkaline Phosphatase 128 H (39-117) U/L Total Protein 9.1 H (6.5-8.0) g/dL Albumin 4.7 (3.5-5.0) g/dL Lipase 22 (8-78) U/L Beta HCG, Quant < 2 mIU/mL Radiology Impression Discussion of test interpretation with radiology: I have reviewed the radiologist's reading. Radiologist Impression: Please see the discussion above Medications Administered Discontinued Medications Generic Name Dose Route Start Last Admin Trade Name Freq PRN Reason Stop Dose Admin Famotidine 20 mg 05/11/23 01:54 05/11/23 02:13 Famotidine 20 Mg Tablet PO 05/11/23 01:55 20 mg ONCE ONE Administration Discharge Plan Discharge Clinical Impression: Gastritis Patient Disposition: Home, Self-Care Instructions: Gastritis (ED), Diet for Stomach Ulcers and Gastritis (ED) Additional Instructions: 1. Resume all home medications as prescribed. 2. You have been started on a medication to control acid reflux and you should follow-up with primary care doctor. Return to the ER for any worsening symptoms. Prescriptions: New famotidine 20 mg tablet 20 mg PO BEDTIME Qty: 14 0RF No Action clonidine HCl 0.1 mg tablet 1 tab PO BID PRN (Reason: Anxiety) pantoprazole 40 mg tablet,delayed release (DR/EC) 1 tab PO DAILY escitalopram oxalate 20 mg tablet 1 tab PO DAILY aripiprazole 15 mg tablet 7.5 tab PO DAILY Interventions: ED Discharge Assessment Last Done: 05/11/23 02:40 Discharge Date/Time: 05/11/23 02:41
[2023-05-11 02:08] VITALS: BP 114/61; PULSE 68; RESP 16
[2023-05-11] MEDS: Famotidine 20 MG TABLET PO (02:13)
[2023-05-11 02:22] LABS: HCG Quantitative < 2 mIU/mL
== END 2023-05-11 02:41 | disposition home or self-care (01) ==
PROVIDERS: Physician Assistant Medical; Emergency Provider Student in an Organized Health Care Education/Training Program
DX: K29.70 Gastritis, unspecified, without bleeding (principal); R10.10 Upper abdominal pain, unspecified
CPT/HCPCS: 36415; 76705; 80048; 80076; 83690; 84702; 85025; 99284

== ENCOUNTER 2023-09-15 18:07 | Emergency (ER) | payer MEDICAID, SELFPAY ==
--- NOTE | ~2023-09-15 | XR_ITS ---
EXAMINATION: XR ANKLE LEFT XR FOOT LEFT CLINICAL INFORMATION: Pain. Evaluate for fracture. COMPARISON: None TECHNIQUE: Left ankle, 2 views Left foot, 3 views FINDINGS: Left ankle: Alignment is normal. The talar dome is well-positioned within the intact mortise. No fracture, subluxation or ankle joint effusion. Left foot: There is questionable finding of a very small cortical avulsion fragment of the distal lateral calcaneus. Otherwise, bones, joints and soft tissues of the hindfoot and midfoot are unremarkable. Joint spaces are well-preserved throughout the foot. 11 degrees of metatarsus primus varus and 25 degrees of hallux valgus. XR/XR ankle LT min 3V IMPRESSION: * No fracture or malalignment at the left ankle. * As seen on the AP view of the foot, there is a possible very small cortical avulsion of the distal lateral cuboid. Since this is a subtle/questionable finding, correlation with any specific site of pain would be helpful. If patient has pain in this area, then a recent minor extensor digitorum brevis avulsion would be considered.
--- NOTE | ~2023-09-15 | XR_ITS ---
EXAMINATION: XR ANKLE LEFT XR FOOT LEFT CLINICAL INFORMATION: Pain. Evaluate for fracture. COMPARISON: None TECHNIQUE: Left ankle, 2 views Left foot, 3 views FINDINGS: Left ankle: Alignment is normal. The talar dome is well-positioned within the intact mortise. No fracture, subluxation or ankle joint effusion. Left foot: There is questionable finding of a very small cortical avulsion fragment of the distal lateral calcaneus. Otherwise, bones, joints and soft tissues of the hindfoot and midfoot are unremarkable. Joint spaces are well-preserved throughout the foot. 11 degrees of metatarsus primus varus and 25 degrees of hallux valgus. XR/XR foot LT 2V IMPRESSION: * No fracture or malalignment at the left ankle. * As seen on the AP view of the foot, there is a possible very small cortical avulsion of the distal lateral cuboid. Since this is a subtle/questionable finding, correlation with any specific site of pain would be helpful. If patient has pain in this area, then a recent minor extensor digitorum brevis avulsion would be considered.
[2023-09-15 18:12] VITALS: BP 146/92; PULSE 102; O2SAT 99
[2023-09-15 19:05] VITALS: BP 123/80; PULSE 99; RESP 20; TEMP 37; O2SAT 97; BMI 34.3
--- NOTE | 2023-09-15 19:09 | ED_ITS ---
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) Location: left and lower extremity Severity: moderate Quality: aching Pain Consistency: constant Relieving factors: immobilization and rest Exacerbating factors: movement Associated symptoms: denies other symptoms Treatments prior to arrival: none Related Data Home Medications ?Medication ?Instructions ?Recorded ?Confirmed aripiprazole 15 mg tablet 7.5 tab PO DAILY 11/01/20 11/12/20 clonidine HCl 0.1 mg tablet 1 tab PO BID PRN Anxiety 11/01/20 11/12/20 escitalopram oxalate 20 mg tablet 1 tab PO DAILY 11/01/20 11/12/20 pantoprazole 40 mg tablet,delayed 1 tab PO DAILY 11/01/20 11/12/20 release Previous Rx's ?Medication ?Instructions ?Recorded famotidine 20 mg tablet 20 mg PO BEDTIME #14 tabs 05/11/23 Allergies Allergy/AdvReac Type Severity Reaction Status Date / Time No Known Allergies Allergy Verified 09/15/23 19:07 [No Known Allergies*] Review of Systems Review of Systems: Constitutional : No Fever, No Chills Cardiovascular : No Chest Pain, No SOB Respiratory : No Cough, No Dyspnea Gastrointestinal : No Nausea, No Vomiting, No Diarrhea, No abdominal Pain Genitourinary : No Dysuria, No Hematuria Musculoskeletal : positive joint pain, No Myalgias, No Joint Swelling Skin : No Skin lacerations, No rash Neuro : No Weakness, No Numbness, No Loss of Consciousness, No Dizziness, No Headache All other systems reviewed and are negative [facility] Past Medical History Attestation statement: The following information was validated with the patient. Source: old records reviewed Medical History Acute depression Social History Social History Alcohol intake: unknown Patient Tobacco Use Status: Never used Tobacco Advance Directives: No Advance Directives Information Provided: No Physical Exam ED Vital Signs: Vital Signs - 24 hr 09/15/23 19:05 Temperature 98.6 F Pulse Rate 99 Respiratory Rate 20 Blood Pressure 123/80 Pulse Oximetry 97 Oxygen Delivery Method Room Air BMI result Body Mass Index 34.3 Appearance: Alert. Oriented X3. No acute distress. Eyes: Pupils equal, round and reactive to light. ENT: Pharynx normal. Neck: Normal inspection. Neck supple. CVS: Pulses normal. Respiratory: No respiratory distress. Abdomen: Soft and nontender. Skin: Skin warm and dry. Normal skin color. Extremities: No lower extremity edema. L ankle ttp along lateral malleolus and also proximal laterally Neuro: Oriented X 3. No motor deficit. No sensory deficit. Course Course Course Narrative: RME: 23 yold presents to the ED for left foot pain after hearing cracking in left foot while taking a step. patient denies falling to the floor. 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 Medical Decision Making Medical Decision Making MDM Narrative: 23 yo patient with isolated L foot injury no prox fibula ttp they are NV intact at this time xrays ordered. if there is injury they do not feel they can managed with crutches well will place in walking boot and crutches to prevent injury of possible avulsion area. refer to orthopedics Differential Diagnosis Differential Diagnoses: The differential diagnosis associated with the presentat ion includes strain, sprain, fracture Independent Interpretation I performed an independent interpretation of an: Plain X-Ray (abnormality noted) Radiology Impression Discussion of test interpretation with radiology: I have reviewed the radiologist's reading. External Record Review External record reviewed: Inpatient record Discharge Plan Discharge Clinical Impression: Foot injury, Left ankle sprain Patient Disposition: Home, Self-Care Instructions: Ankle Sprain (ED), Crutch Instructions (ED) Additional Instructions: xray for ankle shows no fracture foot xray shows possible small avulsion fracture of the cuboid bone please no weight bearing yet use crutches and only gentle pressure on boot follow up with orthopedics. rest, ice, elevate, motrin and tylenol for pain return for any worsening symptoms or concerns. Prescriptions: No Action clonidine HCl 0.1 mg tablet 1 tab PO BID PRN (Reason: Anxiety) pantoprazole 40 mg tablet,delayed release (DR/EC) 1 tab PO DAILY escitalopram oxalate 20 mg tablet 1 tab PO DAILY aripiprazole 15 mg tablet 7.5 tab PO DAILY famotidine 20 mg tablet 20 mg PO BEDTIME Qty: 14 0RF Referrals: Mel Escalera PA-C [Physician Attorney Law Clerk] - (call to schedule appointment) Interventions: ED Discharge Assessment Last Done: 09/15/23 23:07 Discharge Date/Time: 09/15/23 23:08 Print Language: Polish
[2023-09-15 23:07] VITALS: BP 118/72; PULSE 84; RESP 18; TEMP 36.7; O2SAT 97
== END 2023-09-15 23:08 | disposition home or self-care (01) ==
PROVIDERS: Emergency Provider Emergency Medicine
DX: S93.402A Sprain of unspecified ligament of left ankle, initial encounter (principal); S99.922A Unspecified injury of left foot, initial encounter; X50.1XXA Overexertion from prolonged static or awkward postures, initial encounter; Y93.9 Activity, unspecified; Y92.9 Unspecified place or not applicable; Y99.8 Other external cause status
CPT/HCPCS: 73610; 73620; 99282; 99283

== ENCOUNTER 2023-09-30 09:58 | Outpatient (AMB) | payer MEDICAID, SELFPAY ==
--- NOTE | 2023-09-30 10:10 | MHC.OFFVIS ---
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 Patient reports foot went sideways when they were going down the stairs, states that they did not fall down. Seen at [facility] ER same day where xrays were taken and placed in a walking boot. Currently their pain mostly comes at night and is located at the top of foot. States numbness and tingling has subsided. 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 Patient was seen at ER the same day where x-rays were performed and placed in a walking boot. Patient currently states pain at the top of her foot that is aggravated at night. Patient reports numbness and tingling has subsided. [facility] Medical History Acute depression Social History (Updated 09/30/23 @ 10:13 by EROS Rodgers) Alcohol intake: unknown Patient Tobacco Use Status: Never used Tobacco Current occupational status: unemployed Review of Systems Const All systems reviewed & are unremarkable except as noted in HPI and below Physical Exam Vital Signs: BMI result Body Mass Index 34.3 Const General: cooperative, healthy appearing, comfortable, no acute distress, well developed and alert Orientation/consciousness: patient oriented x3 HEENT Head: Yes normal to inspection, Yes normocephalic and Yes atraumatic Eyes General: appearance normal, both eyes and all related structures Resp Effort & Inspection: normal respiratory effort and able to speak in complete sentences Cardio Rate: regular rate Peripheral pulses: Peripheral pulses 2+ throughout GI Palpation (GI): Soft to palpation Skin Lesions: no lesions Rashes: no rashes Neuro General: patient oriented x3 Extrem Other: Left ankle: Normal to inspection with trace swelling over the medial malleolus with tenderness along the soft tissues. No discomfort along the posterior aspect of the ankle, no deformity along the Achilles tendon, negative Garcia?s. No pain along the syndesmosis or anterior tibia. No laxity, NVI. Results Reviewed Results Reviewed: left ankle xr 09/15/23 IMPRESSION: * No fracture or malalignment at the left ankle. * As seen on the AP view of the foot, there is a possible very small cortical avulsion of the distal lateral cuboid. Since this is a subtle/questionable finding, correlation with any specific site of pain would be helpful. If patient has pain in this area, then a recent minor extensor digitorum brevis avulsion would be considered. Assessment & Plan Assessment & Plan (1) Right ankle sprain: Code(s): S93.401A - Sprain of unspecified ligament of right ankle, initial encounter Category: Medical Plan We discussed options which include PT, NSAIDs and bracing. The patient will proceed with PT and NSAIDs. Patient was also given a lace up ankle brace today. If symptoms persist, the patient will contact me for an injection, otherwise, PRN. Orders: Orders PT Evaluation and Treatment Today S93.492A - Sprain of other ligament of left ankle, initial encounter Patient Instructions: Scribed for Leo Delarosa PA-C, by Darnell Ventura medical officer, on 09/30/2023 at 10:00 AM EST.? I, Leo Delarosa PA-C, have personally reviewed and agree with the information entered by the scribe. Coding Level of Care Code New Pt Level 3 (07262) Diagnoses Right ankle sprain S93.401A
[2023-09-30 10:23] VITALS: BMI 34.3
== END 2023-09-30 10:57 | disposition home or self-care (01) ==
PROVIDERS: Visit Provider Physician Assistant
DX: S93.401A Sprain of unspecified ligament of right ankle, initial encounter (principal)
CPT/HCPCS: 99203

== ENCOUNTER → 2023-09-30 09:58 | Outpatient (BNVA) | payer MEDICAID, SELFPAY | PROVIDERS: Visit Provider Physician Assistant | DX: S93.401A Sprain of unspecified ligament of right ankle, initial encounter (principal); X50.1XXA Overexertion from prolonged static or awkward postures, initial encounter; Y93.01 Activity, walking, marching and hiking; Y92.9 Unspecified place or not applicable; Y99.9 Unspecified external cause status | CPT/HCPCS: 99202 ==

== ENCOUNTER 2023-12-03 14:48 | Emergency (ER) | payer MEDICAID, SELFPAY ==
--- NOTE | ~2023-12-03 | US_ITS ---
EXAMINATION: US ABDOMEN LIMITED CLINICAL INFORMATION: Upper abdominal pain. Epigastric, right upper quadrant. COMPARISON: 05/10/2023 TECHNIQUE: Real-time imaging of the right upper quadrant abdominal viscera. FINDINGS: PANCREAS: Normal. LIVER: There is a 1.9 x 1.4 x 1.4 cm homogeneously echogenic focus within the right hepatic lobe which was present on prior studies and likely corresponds to a hemangioma. The liver is normal in size. The liver contour is normal. Parenchymal echogenicity is normal. No new hepatic lesions. There is no intrahepatic biliary duct dilatation seen. GALLBLADDER: Normal. The gallbladder is physiologically distended without evidence of stones, sludge, polyps, wall thickening or pericholecystic fluid. COMMON BILE DUCT: Normal in caliber measuring 0.3 cm in diameter. RIGHT KIDNEY: Normal. No hydronephrosis. No renal calculi or focal parenchymal lesions. The kidney measures 9.5 cm in maximum dimension. FREE FLUID: None. US/US abdomen limited IMPRESSION: 1. No acute intra-abdominal abnormalities. 2. Unchanged 1.9 cm echogenic lesion in the right hepatic lobe, most consistent with hemangioma.
--- NOTE | 2023-12-03 15:03 | ED.ABDPAIN ---
HPI - Abdominal Pain General Chief Complaint: Abdominal Pain Stated Complaint: abdominal pain/discomfort Time Seen by Provider: 12/03/23 16:20 Source: patient, RN notes reviewed and old records reviewed Mode of arrival: ambulatory Limitations: no limitations History of Present Illness ED Provider: Tristan VERDIN narrative: 23-year-old biologic female who identifies as male presents for evaluation of abdominal pain Patient reports upper abdominal pain that has been pretty constant for the last 3 days pain The pain does wax and wane in intensity He describes the pain as burning in nature The pain is also worse at night when lying down The patient has never had any history of abdominal surgeries. The patient does have a history of gastritis He does not take any medications to help alleviate his symptoms Denies any nausea vomiting, diarrhea. Denies any chest pain, shortness of breath The patient reports having had an upper endoscopy about 3 years ago at this facility Related Data Home Medications ?Medication ?Instructions ?Recorded ?Confirmed aripiprazole 15 mg tablet 7.5 tab PO DAILY 11/01/20 11/12/20 clonidine HCl 0.1 mg tablet 1 tab PO BID PRN Anxiety 11/01/20 11/12/20 escitalopram oxalate 20 mg tablet 1 tab PO DAILY 11/01/20 11/12/20 pantoprazole 40 mg tablet,delayed 1 tab PO DAILY 11/01/20 11/12/20 release hydroxyzine HCl 10 mg tablet 10 mg PO TID 09/30/23 mirtazapine 30 mg tablet 30 mg PO BEDTIME 09/30/23 testosterone cypionate 200 mg/mL 50 mg subcut QWEEK 09/30/23 intramuscular oil Previous Rx's ?Medication ?Instructions ?Recorded famotidine 20 mg tablet 20 mg PO BEDTIME #14 tabs 05/11/23 omeprazole 20 mg capsule,delayed 20 mg PO DAILY #14 caps 12/03/23 release Allergies Allergy/AdvReac Type Severity Reaction Status Date / Time No Known Allergies Allergy Verified 12/03/23 15:09 [No Known Allergies*] Review of Systems Constitutional: Denies body ache(s), Denies fever(s) and Denies headache(s) Eyes: Denies blurry vision Denies headache(s) Cardiovascular: Denies chest pain and Denies dyspnea Respiratory: Denies cough and Denies dyspnea Gastrointestinal: Reports abdominal pain, Denies nausea and Denies vomiting Musculoskeletal: Denies back pain Skin/Breast: Denies rash Denies headache(s) PMFSH Past Medical History Medical History Acute depression Social History Social History (Updated 09/30/23 @ 10:13 by Madina Sexton [facility]) Alcohol intake: unknown Patient Tobacco Use Status: Never used Tobacco Smoked in Last 30 Days: No Use of substances other than those prescribed or required for medical reasons: No Advance Directives: No Advance Directives Information Provided: No Do you have a plan to hurt others: No Plan Patient : No Current occupational status: unemployed Physical Exam ED Vital Signs: Vital Signs - 24 hr 12/03/23 15:07 12/03/23 15:24 Temperature 97.7 F 98.0 F Pulse Rate 88 107 H Respiratory Rate 18 16 Blood Pressure 132/72 128/80 Pulse Oximetry 97 98 Oxygen Delivery Method Room Air Room Air BMI result Body Mass Index 32.5 Const General: healthy appearing, comfortable, no acute distress, alert and awake Nutritional Appearance: well nourished Orientation/consciousness: patient oriented x3 HENMT Head: Yes normocephalic and Yes atraumatic Eyes Eyelids: Yes eyelids normal Conjunctivae: conjunctivae normal Sclerae: sclerae normal Corneas: corneas normal Pupils: Equal, round and reactive pupils present EOM: EOMs intact bilaterally Neck Neck: Yes full ROM Resp Effort & Inspection: normal respiratory effort, able to speak in complete sentences and not labored GI Inspection: No distended Palpation (GI): Soft to palpation, not firm, Tenderness to palpation present (GI) in the epigastrum and in the LUQ; not in the RUQ, not at McBurney's point and Funk's sign negative, no guarding and not rigid Skin General skin exam: elasticity normal Neuro General: patient oriented x3 Cranial nerves: Yes Equal, round and reactive pupils present and Yes Bilaterally intact EOM present Cognition (Neuro): normal cognition Extrem Other: Moving all extremities well without any obvious deformities Course Course Course Narrative: This is a Rapid Medical Exam performed in triage by Caryn Maguire PA-C. Full HPI, ROS and PE to be performed by primary ED provider. 23 year-old transgender FTM w/no sig PMHx presenting to the ED c/o constant upper abdominal pain x3 days worse w/eating. no vomiting. denies urinary sx. Admits to intermittent constipation PE: abdomen soft w/epigastric/RUQ tenderness, no rebound Plan: Labs, UA, US Medical Decision Making Medical Decision Making [facility] Narrative: 23-year-old biological female who identifies as male presents for evaluation upper abdominal pain. The patient has mild epigastric and left upper quadrant tenderness on exam no right upper quadrant tenderness, negative Funk's sign. Labs are unremarkable, liver enzymes within normal limits, less likely cholecystitis versus choledocholithiasis. The patient has a history of gastritis and clinically this is most likely diagnosis. Ultrasound is pending of the right upper quadrant. The patient declined GI cocktail and prefers a pill we will give omeprazole orally. The patient has no lower abdominal pain, less likely acute appendicitis. There is no urinary symptoms. The patient's UA has no nitrites, no esterase, no white cells but does have 3+ bacteria which is likely related to the epithelial cells and a contaminant Differential Diagnosis Differential Diagnoses: The differential diagnosis associated with the presentation includes Gastritis GERD Peptic ulcer disease Cholelithiasis Acute cholecystitis Pancreatitis Acute appendicitis Lab Data [facility] Lab Attestation statement: I reviewed the patient's lab results. Please see medical decision making section above 12/03/23 15:29 12/03/23 15:29 Labs: Lab Results 12/03/23 12/03/23 Range/Units 15:28 15:29 WBC 10.3 (4.8-10.8) X10*3/uL RBC 4.87 (4.20-5.50) X10*6/uL Hgb 13.3 (12.0-16.0) g/dl Hct 39.9 (37.0-47.0) % MCV 81.9 (80.0-98.0) fL MCH 27.3 (27.0-33.0) pg MCHC 33.3 (31.0-35.0) g/dl RDW 13.0 (11.0-16.0) % Plt Count 380 (160-400) X10*3/uL MPV 10.1 (9.4-12.3) fL Immature Gran % (Auto) 0.2 (0.0-0.4) % Neut % (Auto) 72.7 (45-73) % Lymph % (Auto) 21.7 (20-40) % [place] % (Auto) 4.7 (2-11) % Eos % (Auto) 0.4 (0-4) % Baso % (Auto) 0.3 (0-2) % Lymph # (Auto) 2.2 (1.2-4.9) X10*3/uL [place] # (Auto) 0.5 (0.1-1.2) X10*3/uL Eos # (Auto) 0.0 (0.0-0.4) X10*3/uL Baso # (Auto) 0.0 (0.0-0.2) X10*3/uL Abs Immat Gran (auto) 0.02 (0.00-0.03) X10*3/uL Absolute Neuts (auto) 7.5 (2.0-8.3) x10*3/uL Absolute Nucleated RBC 0.000 (0.0-0.012) X10*3/uL Nucleated RBC % (auto) 0.0 (0.0-0.2) /100WBC Sodium 140 (135-145) mmol/L Potassium 3.5 (3.3-5.1) mmol/L Chloride 106 (96-108) mmol/L Carbon Dioxide 20 L (22-29) mmol/L Anion Gap 18 (12-20) BUN 8 L (9-16) mg/dL Creatinine 0.84 (0.5-1.4) mg/dL Estim Creat Clear Calc 111.4 Estimated GFR > 60 Random Glucose 105 (60-115) mg/dL Calcium 9.5 (8.4-10.2) mg/dL Magnesium 1.9 (1.6-2.6) mg/dL Total Bilirubin 0.4 (0.0-1.0) mg/dL Direct Bilirubin 0.2 (0.0-0.5) mg/dL AST 18 (5-31) U/L ALT 19 (0-31) U/L Alkaline Phosphatase 102 (39-117) U/L Total Protein 8.1 H (6.5-8.0) g/dL Albumin 4.5 (3.5-5.0) g/dL Lipase 24 (8-78) U/L Urine Color Dark Yellow Urine Appearance Cloudy Urine pH 6.0 (5.0-9.0) Ur Specific [place] >= 1.030 H (1.005-1.025) Urine Protein 30 (1+) H (Neg-Trace) mg/dL Urine Glucose (UA) Negative (Negative) mg/dL Urine Ketones 40 (Negative) mg/dL Urine Blood Negative (Negative) Urine Nitrite Negative (Negative) Ur Leukocyte Esterase Negative (Negative) Urine RBC 0-2 (0-2) /HPF Urine WBC 0-5 (0-5) /HPF Ur Squamous Epith Cells 11-20 (0-2) /HPF Urine Bacteria 3+ (None Seen) Hyaline Casts 0-2 (0-2) /LPF Urine Test NEGATIVE (NEGATIVE) Medications Administered Discontinued Medications Generic Name Dose Route Start Last Admin Trade Name Freq PRN Reason Stop Dose Admin Omeprazole 40 mg 12/03/23 16:48 12/03/23 16:54 Omeprazole 40 Mg Capsule. PO 12/03/23 16:49 40 mg ONCE ONE Administration Discharge Plan Discharge Clinical Impression: Gastritis Patient Disposition: Home, Self-Care Instructions: Gastritis (ED) Additional Instructions: Your blood work and ultrasound were reassuring today. You do have a small hemangioma on your liver, this is not of concern and not contributing to your abdominal pain. It is a benign lesion I recommend that you follow-up with a GI doctor at the number provided. In the meantime avoid spicy, greasy foods. Take omeprazole 20 mg daily for the next 2 weeks Follow-up with your primary doctor, return for new or worsening symptoms Prescriptions: New omeprazole 20 mg capsule,delayed release(DR/EC) 20 mg PO DAILY Qty: 14 0RF No Action clonidine HCl 0.1 mg tablet 1 tab PO BID PRN (Reason: Anxiety) pantoprazole 40 mg tablet,delayed release (DR/EC) 1 tab PO DAILY escitalopram oxalate 20 mg tablet 1 tab PO DAILY aripiprazole 15 mg tablet 7.5 tab PO DAILY famotidine 20 mg tablet 20 mg PO BEDTIME Qty: 14 0RF mirtazapine 30 mg tablet 30 mg PO BEDTIME testosterone cypionate 200 mg/mL oil 50 mg subcut QWEEK hydroxyzine HCl 10 mg tablet 10 mg PO TID Referrals: Garo Mcghee MD [Physician] - (gastritis) Print Language: Danish
[2023-12-03 15:07] VITALS: BP 132/72; PULSE 88; RESP 18; TEMP 36.5; O2SAT 97; BMI 32.5
[2023-12-03 15:24] VITALS: BP 128/80; PULSE 107; RESP 16; TEMP 36.7; O2SAT 98
[2023-12-03 15:35] LABS: MANUAL DIFF FLAG NO
--- NOTE | 2023-12-03 15:35 | MHC.EDTECH ---
This pct assumed care of Patient at 1500 ,vitals taken ,blood drawn and urine sample collected all sent to lab .
[2023-12-03 15:37] LABS: Basophils Percent Auto 0.3 % (0-2); Eosinophils Percent Auto 0.4 % (0-4); Hematocrit 39.9 % (37.0-47.0); Hemoglobin 13.3 g/dl (12.0-16.0); Imm Gran Abs Auto 0.02 X10*3/uL (0.00-0.03); Imm Gran Pct Auto 0.2 % (0.0-0.4); Lymphocytes Absolute Auto 2.2 X10*3/uL (1.2-4.9); Lymphocytes Percent Auto 21.7 % (20-40); Mean Corpuscular HGB Conc 33.3 g/dl (31.0-35.0); Mean Corpuscular Hemoglobin 27.3 pg (27.0-33.0); Mean Corpuscular Volume 81.9 fL (80.0-98.0); Mean Platelet Volume 10.1 fL (9.4-12.3); Monocytes Absolute Auto 0.5 X10*3/uL (0.1-1.2); Monocytes Percent Auto 4.7 % (2-11); Neutrophils Absolute Auto 7.5 x10*3/uL (2.0-8.3); Neutrophils Percent Auto 72.7 % (45-73); Platelet Count 380 X10*3/uL (160-400); Red Blood Count 4.87 X10*6/uL (4.20-5.50); White Blood Count 10.3 X10*3/uL (4.8-10.8)
[2023-12-03 15:39] LABS: UPreg QC Valid YES; Urine Pregnancy NEGATIVE (NEGATIVE)
[2023-12-03 15:39] LABS: Appearance Urine Cloudy; Color Urine Dark Yellow; Glucose Urine UA Negative (Negative); Leukocyte Esterase Urine Negative (Negative); Nitrite Urine Negative (Negative); Specific Gravity - Urine >= 1.030 (1.005-1.025); UMIC TRIGGER UACC YES; Urine Blood Negative (Negative); Urine Ketones 40 mg/dL (Negative); Urine Protein 30 (1+) mg/dL (Neg-Trace)
[2023-12-03 15:52] LABS: Alanine Aminotransferase 19 U/L (0-31); Albumin Level 4.5 g/dL (3.5-5.0); Alkaline Phosphatase 102 U/L (39-117); Anion Gap 18 (12-20); Aspartate Amino Transferase 18 U/L (5-31); Bacteria Urine 3+ (None Seen); Bilirubin Direct 0.2 mg/dL (0.0-0.5); Bilirubin Total 0.4 mg/dL (0.0-1.0); Blood Urea Nitrogen 8 mg/dL (9-16); Calcium 9.5 mg/dL (8.4-10.2); Carbon Dioxide 20 mmol/L (22-29); Chloride 106 mmol/L (96-108); Creatinine Clr Calc Pharmacy 111.4; Estimated Glomerular Filt Rate > 60; Glucose Random 105 mg/dL (60-115); Hyaline Casts Urine 0-2 /LPF (0-2); Lipase 24 U/L (8-78); Magnesium 1.9 mg/dL (1.6-2.6); Potassium 3.5 mmol/L (3.3-5.1); RBC Urine 0-2 /HPF (0-2); Sodium 140 mmol/L (135-145); Total Protein 8.1 g/dL (6.5-8.0); WBC Urine 0-5 /HPF (0-5)
[2023-12-03] MEDS: Omeprazole 40 MG CAPSULE.DR PO (16:54)
[2023-12-03 17:20] VITALS: BP 126/86; PULSE 96; RESP 16; TEMP 36.7; O2SAT 98
== END 2023-12-03 17:23 | disposition home or self-care (01) ==
PROVIDERS: Physician Assistant; Emergency Provider Emergency Medicine
DX: K29.70 Gastritis, unspecified, without bleeding (principal); R10.10 Upper abdominal pain, unspecified
CPT/HCPCS: 36415; 76705; 80048; 80076; 81001; 81025; 83690; 83735; 85025; 99284

== ENCOUNTER 2023-12-17 16:22 | Emergency (ER) | payer MEDICAID, SELFPAY ==
[2023-12-17 16:33] VITALS: BP 131/86; PULSE 101; RESP 18; TEMP 36.6; O2SAT 97; BMI 30.8
--- NOTE | 2023-12-17 16:33 | ED.GENADULT ---
HPI - General Adult General Chief complaint: Abdominal Pain Stated complaint: stomach pain/on meds not working Time Seen by Provider: 12/17/23 17:01 History of Present Illness ED Provider: Dr. Maciej Sdaler HPI narrative: 23-year-old patient male patient with female gender at who presents emergency department for evaluation of epigastric pain. Patient states that he has had difficulty with stomach issues for a long time. He states that over the last 2 weeks he has been having epigastric pain which is worse after eating meals. He was seen in the emergency department on 12/03/2023 diagnosed with gastritis and started on omeprazole 20 mg once a day for 2 weeks. He states he has completed this course of medications and has not had any improvement. The patient states he does have an appointment with a veteran appeals reviewer but is not until 02/26/2024. He denied fever, chills, he has had associated nausea but no vomiting. He has had no diarrhea, dark tarry stools or bloody stools. Related Data Home Medications ?Medication ?Instructions ?Recorded ?Confirmed aripiprazole 15 mg tablet 7.5 tab PO DAILY 11/01/20 11/12/20 clonidine HCl 0.1 mg tablet 1 tab PO BID PRN Anxiety 11/01/20 11/12/20 escitalopram oxalate 20 mg tablet 1 tab PO DAILY 11/01/20 11/12/20 pantoprazole 40 mg tablet,delayed 1 tab PO DAILY 11/01/20 11/12/20 release hydroxyzine HCl 10 mg tablet 10 mg PO TID 09/30/23 mirtazapine 30 mg tablet 30 mg PO BEDTIME 09/30/23 testosterone cypionate 200 mg/mL 50 mg subcut QWEEK 09/30/23 intramuscular oil Previous Rx's ?Medication ?Instructions ?Recorded famotidine 20 mg tablet 20 mg PO BEDTIME #14 tabs 05/11/23 omeprazole 20 mg capsule,delayed 20 mg PO DAILY #14 caps 12/03/23 release aluminum hydrox-magnesium carb 254 10 ml PO QID PRN dyspepsia #355 mL 12/17/23 mg-237.5 mg/5 mL oral suspension (Gaviscon Extra Strength) omeprazole 20 mg capsule,delayed 20 mg PO BID 30 days #60 caps 12/17/23 release Allergies Allergy/AdvReac Type Severity Reaction Status Date / Time No Known Allergies Allergy Verified 12/17/23 16:35 [No Known Allergies*] Review of Systems Review of Systems: Yes all other systems are reviewed and are negative [facility] Past Medical History [facility] Narrative: Social history: He denies tobacco, alcohol and drug use Medical History Acute depression Social History Social History (Updated 09/30/23 @ 10:13 by EROS Rodgers) Alcohol intake: unknown Patient Tobacco Use Status: Never used Tobacco Advance Directives: No Advance Directives Information Provided: No Do you have a plan to hurt others: No Plan Current occupational status: unemployed Physical Exam ED Vital Signs: Vital Signs - 24 hr 12/17/23 16:33 Temperature 97.9 F Pulse Rate 101 H Respiratory Rate 18 Blood Pressure 131/86 Pulse Oximetry 97 Oxygen Delivery Method Room Air BMI result Body Mass Index 30.8 Vital signs revealed an elevated heart rate of 101 Exam: General: Awake, alert in no distress Head: Normocephalic, atraumatic EENT: PERRL, Lids normal, sclera normal, conjunctiva normal, nose normal , ears normal, throat without erythema or exudates Neck: Supple, no adenopathy Lung: breath sounds symmetric, no wheezing, rales or rhonchi Chest: symmetric movement, nontender Heart: regular rate and rhythm, normal S1, S2 no murmurs or rubs Abdomen: soft, moderate epigastric tenderness, no right upper quadrant tenderness, negative Funk sign, nondistended, normal bowel sounds Back: no vertebral tenderness, no CVAT Extremities: no deformities, moves all extremities symmetrically Neuro: Awake, alert, oriented, normal speech, cranial nerves intact, moves all extremities symmetrically Psych: Pleasant, cooperative Course Course Course Narrative: This is a rapid medical exam performed by Kalpesh Souza NP: Additional HPI, ROS, PE not included below will be deferred to primary provider. Patient is a 23-year-old presenting to the ED with complaint of abdominal pain. Seen here on 12/02 and diagnosed with gastritis, taking the prescribed medications without change in symptoms. Nausea without vomiting. Was referred to GI but that appointment is not until february. Plan: labs, UA Medical Decision Making Medical Decision Making [facility] Narrative: 23-year-old patient male patient with female gender at who presents emergency department for evaluation of epigastric pain times 2-3 weeks, with pain immediately worse after meals, seen in the emergency department on 12/03/2023 with negative laboratory workup, ultrasound with no gallstones but physiologic distended gallbladder, no relief with Prilosec 20 mg once a day for 2 weeks. Vital signs revealed an elevated heart rate otherwise unremarkable. Examination revealed epigastric tenderness with no right upper quadrant tenderness and negative Funk sign. Differential diagnosis: ?Includes but is not limited to gastritis, peptic ulcer disease, biliary disease Following evaluation was ordered: CBC, CMP, lipase, quantitative beta-hCG, urinalysis Course: 18:32 Patient's laboratory evaluation was interpreted by me as follows: CBC was normal. CMP was unremarkable except for an elevated glucose of 121. Lipase was normal. LFTs were normal. Quantitative beta-hCG was below detectable limits. Patient's presentation findings are can consistent with gastritis and I did discuss this with the patient. The patient will be started on Prilosec 20 mg twice a day for 1 month and extra-strength Gaviscon 10 cc before meals and at bedtime as needed for pain. Patient was given printed and verbal instructions and discharged home. Admission/Observation Consideration of admission/observation: Escalation of care including admission/observation considered Lab Data MDM Lab Attestation statement: I reviewed the patient's lab results. 12/17/23 17:01 12/17/23 17:01 Labs: Lab Results 12/17/23 Range/Units 17:01 WBC 6.3 (4.8-10.8) X10*3/uL RBC 4.64 (4.20-5.50) X10*6/uL Hgb 12.7 (12.0-16.0) g/dl Hct 38.1 (37.0-47.0) % MCV 82.1 (80.0-98.0) fL MCH 27.4 (27.0-33.0) pg MCHC 33.3 (31.0-35.0) g/dl RDW 13.2 (11.0-16.0) % Plt Count 296 (160-400) X10*3/uL MPV 10.5 (9.4-12.3) fL Immature Gran % (Auto) 0.3 (0.0-0.4) % Neut % (Auto) 56.4 (45-73) % Lymph % (Auto) 35.0 (20-40) % [place] % (Auto) 5.9 (2-11) % Eos % (Auto) 1.9 (0-4) % Baso % (Auto) 0.5 (0-2) % Lymph # (Auto) 2.2 (1.2-4.9) X10*3/uL [place] # (Auto) 0.4 (0.1-1.2) X10*3/uL Eos # (Auto) 0.1 (0.0-0.4) X10*3/uL Baso # (Auto) 0.0 (0.0-0.2) X10*3/uL Abs Immat Gran (auto) 0.02 (0.00-0.03) X10*3/uL Absolute Neuts (auto) 3.5 (2.0-8.3) x10*3/uL Absolute Nucleated RBC 0.000 (0.0-0.012) X10*3/uL Nucleated RBC % (auto) 0.0 (0.0-0.2) /100WBC Sodium 140 (135-145) mmol/L Potassium 4.0 (3.3-5.1) mmol/L Chloride 109 H (96-108) mmol/L Carbon Dioxide 22 (22-29) mmol/L Anion Gap 13 (12-20) BUN 5 L (9-16) mg/dL Creatinine 0.85 (0.5-1.4) mg/dL Estim Creat Clear Calc 107.0 Estimated GFR > 60 Random Glucose 121 H (60-115) mg/dL Calcium 9.1 (8.4-10.2) mg/dL Total Bilirubin 0.3 (0.0-1.0) mg/dL AST 22 (5-31) U/L ALT 17 (0-31) U/L Alkaline Phosphatase 79 (39-117) U/L Total Protein 7.4 (6.5-8.0) g/dL Albumin 4.0 (3.5-5.0) g/dL Lipase 45 (8-78) U/L Beta HCG, Quant < 2 mIU/mL Prescription Management I considered prescription management with: Other (H2 blockers, antacids) Discharge Plan Discharge Clinical Impression: Gastritis Qualifiers: Chronicity: acute Gastritis bleeding: without bleeding Patient Disposition: Home, Self-Care Instructions: Gastritis (ED) Additional Instructions: Your laboratory evaluation was unremarkable. Your ultrasound from your last visit did not reveal any gallstones or other significant findings in your gallbladder which is reassuring Your symptoms and physical findings are consistent with inflammation of your stomach (gastritis). Take Prilosec (omeprazole) 20 mg pills, 1 pill twice a day a day for 1 month. ?This medication shuts off your acid production and lets the inflammation in your stomach and esophagus heal. Take extra-strength Gaviscon 10 mL (2 tsp) 4 times a day as needed for abdominal pain. Follow-up with your doctor in 2 days. Please return to the emergency department if your symptoms get worse or if you develop any symptoms that are concerning to you. Prescriptions: New Gaviscon Extra Strength 254-237.5 mg/5 mL suspension 10 ml PO QID PRN (Reason: dyspepsia) Qty: 355 0RF omeprazole 20 mg capsule,delayed release(DR/EC) 20 mg PO BID 30 Days Qty: 60 0RF No Action clonidine HCl 0.1 mg tablet 1 tab PO BID PRN (Reason: Anxiety) pantoprazole 40 mg tablet,delayed release (DR/EC) 1 tab PO DAILY escitalopram oxalate 20 mg tablet 1 tab PO DAILY aripiprazole 15 mg tablet 7.5 tab PO DAILY famotidine 20 mg tablet 20 mg PO BEDTIME Qty: 14 0RF omeprazole 20 mg capsule,delayed release(DR/EC) 20 mg PO DAILY Qty: 14 0RF mirtazapine 30 mg tablet 30 mg PO BEDTIME testosterone cypionate 200 mg/mL oil 50 mg subcut QWEEK hydroxyzine HCl 10 mg tablet 10 mg PO TID Print Language: Solomon Islander
[2023-12-17 17:05] LABS: MANUAL DIFF FLAG NO
[2023-12-17 17:06] LABS: Basophils Percent Auto 0.5 % (0-2); Eosinophils Absolute Auto 0.1 X10*3/uL (0.0-0.4); Eosinophils Percent Auto 1.9 % (0-4); Hematocrit 38.1 % (37.0-47.0); Hemoglobin 12.7 g/dl (12.0-16.0); Imm Gran Abs Auto 0.02 X10*3/uL (0.00-0.03); Imm Gran Pct Auto 0.3 % (0.0-0.4); Lymphocytes Absolute Auto 2.2 X10*3/uL (1.2-4.9); Mean Corpuscular HGB Conc 33.3 g/dl (31.0-35.0); Mean Corpuscular Hemoglobin 27.4 pg (27.0-33.0); Mean Corpuscular Volume 82.1 fL (80.0-98.0); Mean Platelet Volume 10.5 fL (9.4-12.3); Monocytes Absolute Auto 0.4 X10*3/uL (0.1-1.2); Monocytes Percent Auto 5.9 % (2-11); Neutrophils Absolute Auto 3.5 x10*3/uL (2.0-8.3); Neutrophils Percent Auto 56.4 % (45-73); Platelet Count 296 X10*3/uL (160-400); Red Blood Count 4.64 X10*6/uL (4.20-5.50); Red Cell Distribution Width 13.2 % (11.0-16.0); White Blood Count 6.3 X10*3/uL (4.8-10.8)
[2023-12-17 17:31] LABS: Alanine Aminotransferase 17 U/L (0-31); Alkaline Phosphatase 79 U/L (39-117); Anion Gap 13 (12-20); Aspartate Amino Transferase 22 U/L (5-31); Bilirubin Total 0.3 mg/dL (0.0-1.0); Blood Urea Nitrogen 5 mg/dL (9-16); Calcium 9.1 mg/dL (8.4-10.2); Carbon Dioxide 22 mmol/L (22-29); Chloride 109 mmol/L (96-108); Estimated Glomerular Filt Rate > 60; Glucose Random 121 mg/dL (60-115); Lipase 45 U/L (8-78); Sodium 140 mmol/L (135-145); Total Protein 7.4 g/dL (6.5-8.0)
[2023-12-17 17:57] LABS: HCG Quantitative < 2 mIU/mL
[2023-12-17 19:23] VITALS: BP 104/53; PULSE 92; RESP 16; TEMP 36.4; O2SAT 97
[2023-12-17 19:30] VITALS: BP 104/53; PULSE 92; RESP 16; TEMP 36.4; O2SAT 97
== END 2023-12-17 19:32 | disposition home or self-care (01) ==
PROVIDERS: Registered Nurse Emergency; Emergency Provider Emergency Medicine Emergency Medical Services
DX: K29.00 Acute gastritis without bleeding (principal); R10.13 Epigastric pain; F64.0 Transsexualism
CPT/HCPCS: 36415; 80053; 83690; 84702; 85025; 99283; 99284

== ENCOUNTER 2023-12-30 14:00 | Outpatient (RCR) | payer MEDICAID, SELFPAY ==
--- NOTE | 2023-10-20 15:58 | MHC.PT.EP ---
[facility] [place] Office [place] Office [place] Office [address] [place] [address] [phone] F: [phone] F: [phone] F: [phone] F: [phone] Physical Therapy Plan of Care Date of Evaluation: 10/20/23 Date of Surgery: N/A Diagnosis: left ankle sprain (RL) PREFERS TO GO BY JAN HE/HIM PRONOUNS Assessment: pt is a 23 y/o male presenting to physical therapy w/ referring diagnosis of left ankle sprain. Impairments include pain, decreased range of motion, decreased strength, impaired functional mobility, impaired postural awareness, and altered ambulation mechanics. pt is a good candidate for skilled PT due to age, potential remediation of impairments, typical disease/condition progression and prognosis, comorbidities, and motivation. pt would benefit from skilled PT intervention to provide a tailored strengthening and stretching exercise program, functional training, gait training, postural re-training, neuromuscular re-education, modalities as needed for pain, equipment safety demonstration. Frequency and Duration: The patient will be seen 1x/wk for 6 wks Short Term Goals: pt will be I w/ HEP to promote self-management of condition. pt will improve B ankle dorsiflexion by at least 10 degrees to promote ease in ambulation. 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 pt will improve L ankle strength to at least 4+/5 to promote ease in community ambulation w/o ASO. Treatment Plan: Modalities to reduce pain, spasms and effusion. Manual therapy to restore motion and function. Therapeutic exercise to improve strength and flexibility. Neuromuscular re-education for posture and balance. Therapeutic activities to return to functional activities of daily living. Electronically signed by: Isela Valentine PT, DPT Please sign and return to therapist. Thank you for your referral.
--- NOTE | 2023-12-30 14:53 | MHC.PT.DC ---
[facility] [place] Office [place] Office [place] Office [address] Luís Carcamo [address] [phone] F: [phone] F: [phone] F: [phone] F: [phone] Physical Therapy Discharge Report Diagnosis: left ankle sprain (RL) PREFERS TO GO BY [facility] Date of Surgery: N/A Date of Evaluation: 10/20/23 Date of Discharge: 12/30/23 Treatments to Date: 4 Cancellations to Date: 4 No Shows to Date: 0 Discharge Status: Independent with HEP Patient Elected to Stop Discharge Summary: Pt was reporting improvement in ankle pain, however has had large gaps between sessions. Pt seems to have regressed since last appointment 3 weeks ago. Pt reported he has not been completing HEP d-t personal issues. Pt decided to discontinue PT services b/c he is going back to school and cannot fit PT into his schedule. Provided and reviewed updated HEP. Electronically signed by: Isela Valentine, PT, DPT Please sign and return to therapist. Thank you for your referral.
== END 2023-12-30 14:53 | disposition home or self-care (01) ==
LOC: HO.PT 14:00
PROVIDERS: Visit Provider Physician Assistant
DX: S93.492D Sprain of other ligament of left ankle, subsequent encounter (principal)
CPT/HCPCS: 97110; 97140; 97162

== ENCOUNTER 2024-02-15 12:42 | Outpatient (AMB) | payer MEDICAID, SELFPAY ==
--- NOTE | 2024-02-15 12:43 | A.OFFVIS_ITS ---
Vital Signs 02/15/24 12:44 Height 5 ft 4 in Weight 167 lb 8.821 oz BMI 28.8 BP 113/57 L Blood Pressure Location Lt brachial Position Sitting Pulse 96 Intake Visit Reasons: Gastritis ED follow up Intake Note: Blake presents in the office as a new patient Gastritis ED follow up. CC: Patient was seen in the ED. Pains in the stomach, more so nausea and less constipation. [employer] Required: No Allergies No Known Allergies [No Known Allergies*] Allergy (Verified 02/15/24 12:46) HPI Comments Details: 23 y.o F-->M who is here fro ER follow up. PT reports around 2 months ago started developing epigastric pain which is sharp goes to his back. Also with nausea but no vomiting. No changes with stool habits. No blood in stool. No fam hx of stomach ca or esophageal ca. NO change in meds or recent travel. Was given protonix from the ER which was completed for 4 weeks without any improvement. EGD: 2020: normal. Normal bx. H PYlori 2020: neg. PFSH Medical History (Updated 02/15/24 @ 15:44 by Marianela Foster MD) Acute depression Surgical History (Updated 02/15/24 @ 12:46 by EROS Ford) History of esophagogastroduodenoscopy (EGD) Social History Alcohol intake: unknown Patient Tobacco Use Status: Never used Tobacco Current occupational status: unemployed Review of Systems Const All systems reviewed & are unremarkable except as noted in HPI and below Physical Exam Vital Signs: Last Vital Signs Pulse 96 02/15/24 12:44 BP 113/57 L 02/15/24 12:44 BMI result Body Mass Index 28.8 No apparent distress Nonicteric Abdomen soft, nondistended Alert and oriented x3, normal gait Assessment & Plan Assessment & Plan (1) Upper abdominal pain: Code(s): R10.10 - Upper abdominal pain, unspecified Category: Medical (2) Nausea: Code(s): R11.0 - Nausea Category: Medical Plan Differentials include GERD, esophagitis, gastritis, NERD, functional dyspepsia. Plan: - H PYlori breath test - Barium esophagogram - EGD - Nexium 20 once daily Follow-up after upper endoscopy Orders: Orders [place] barium swallow Today R10.10 - Upper abdominal pain, unspecified H Pylori Breath Test Today R10.10 - Upper abdominal pain, unspecified Medications: New esomeprazole magnesium (Nexium) 20 mg PO DAILY 90 days 90 caps 0RF Coding Level of Care Code New Pt Level 3 (70608) Diagnoses Upper abdominal pain R10.10 Nausea R11.0
[2024-02-15 12:44] VITALS: BP 113/57; PULSE 96; BMI 28.8
== END 2024-02-15 13:45 | disposition home or self-care (01) ==
PROVIDERS: Visit Provider Internal Medicine
DX: R10.10 Upper abdominal pain, unspecified (principal); R11.0 Nausea
CPT/HCPCS: 99203

== ENCOUNTER 2024-02-15 12:42 | Outpatient (REF) | payer MEDICAID, SELFPAY ==
[2024-02-16 15:20] LABS: H Pylori Breath Test Negative (Negative)
== END 2024-02-15 12:43 | disposition home or self-care (01) ==
LOC: HO.LNP 12:42
PROVIDERS: Visit Provider Internal Medicine
DX: R10.10 Upper abdominal pain, unspecified (principal); R11.0 Nausea
CPT/HCPCS: 83013; 99202

== ENCOUNTER 2024-03-20 10:46 | Day surgery (SDC) | payer MEDICAID, SELFPAY ==
--- NOTE | 2024-03-20 13:15 | MHC.SHP ---
Pre-Procedural Eval Section A - 24 Hr Update-Section A only Date of Service: 03/20/24 Section B - Complete if H&P > 30 days Chief Complaint: Upper abdominal pain,nausea Details of Present Illness: Transgender F->M Acute depression Surgical History (Updated 02/15/24 @ 12:46 by EROS Ford) History of esophagogastroduodenoscopy (EGD) Present Medications: see Short Stay Collaborative assessment Allergies: Allergies Allergy/AdvReac Type Severity Reaction Status Date / Time No Known Allergies Allergy Verified 03/20/24 13:10 [No Known Allergies*] Review of Systems Review of Systems Comment: Ten point ROS negative Exam Exam Comment: Gen appear: No acute distress HEENT: no icterus Chest: No overt resp distress Abd: soft, nontender, nondistended Psych: Stable affect, answering questions appropriately Neuro: A/Ox3 noted to move all extremities spontaneously Ext: no peripheral edema Plan Diagnosis/Plan: Unchanged I have reviewed the history and physical and performed a pertinent physical examination on my patient. No changes have occurred unless specified. Time Spent With Patient Time: Total time managing care of this patient today ____ minutes.
[2024-03-20 13:16] VITALS: BMI 29.0
[2024-03-20 13:37] VITALS: BP 142/75; PULSE 93; RESP 16; TEMP 37.1; O2SAT 100
[2024-03-20 13:38] LABS: Urine Pregnancy NEGATIVE (NEGATIVE)
[2024-03-20 13:39] LABS: UPreg QC Valid YES
--- NOTE | 2024-03-20 13:40 | HO.ANESPROP2 ---
HPI - Anesthesia Eval Consult details Narrative: 23 yo patient for EGD PMFSH Active Problems Active Problems: All Active Problems Nausea (Acute) Right ankle sprain (Acute) Upper abdominal pain (Acute) Past Medical History Medical History Acute depression Family History Family history of problems with anesthesia: No Surgical History Surgical History History of esophagogastroduodenoscopy (EGD) History of Problems with Anesthesia: No Social History Social History Alcohol intake: unknown Patient Tobacco Use Status: Never used Tobacco Use of substances other than those prescribed or required for medical reasons: No Are you DNR?: No Advance Directives: No Advance Directives Information Provided: Yes Current occupational status: unemployed Meds Allergies Allergy/AdvReac Type Severity Reaction Status Date / Time No Known Allergies Allergy Verified 03/20/24 13:10 [No Known Allergies*] Active Medications: Current Medications Lactated Ringer's (Lr) 1,000 mls @ 50 mls/hr IVCONT .Q20H [place] Home Medications ?Medication ?Instructions ?Recorded ?Confirmed ?Last Taken ?Type testosterone cypionate 200 mg/mL 50 mg subcut QWEEK 09/30/23 03/20/24 Unknown History intramuscular oil aripiprazole 2 mg tablet 2 mg PO DAILY 02/15/24 03/20/24 Unknown History bupropion HCl 150 mg 24 hr tablet, 150 mg PO DAILY 02/15/24 03/20/24 Unknown History extended release hydroxyzine HCl 50 mg tablet 50 mg PO BEDTIME 02/15/24 03/20/24 Unknown History mirtazapine 45 mg tablet 45 mg PO BEDTIME 02/15/24 03/20/24 Unknown History Exam Height,Weight and Vital Signs: Height 5 ft 4 in Weight 76.657 kg Last Vital Signs Temp 98.8 F 03/20/24 13:37 Pulse 93 03/20/24 13:37 Resp 16 03/20/24 13:37 BP 142/75 H 03/20/24 13:37 Pulse Ox 100 03/20/24 13:37 O2 Del Method Room Air 03/20/24 13:37 Pertinent Lab Results Pertinent Lab Results: Laboratory Tests 03/20/24 13:07 Urine Test NEGATIVE Airway Mallampati Class: II TM Dist: >3cm Neck ROM: Full Loose/Missing/Broken Teeth: No Heart: RRR Lungs: CTAB Assessment and Plan Assessment Anesthesia Assessment: Anesthesia Plan Discussed and Chart Reviewed Final Anesthetic Review Family History of Problems with Anesthesia: No History of Problems with Anesthesia: No NPO: Yes ASA Class: II Final Preanesthetic Review: No Changes in Pt Med Stat, Meds/Allgs Chart Reviewed, Consent Obtained/Reviewed and Anes Risks/Benef Reviewed Patient Risk: Low Procedure Risk: Low Assessment/Block/Sedation in SS: Assess/Block/Sedation-SS Anesthetic Plan Anesthetic Plan: TIVA Disposition: Standard PACU
[2024-03-20] MEDS: Lactated Ringers 1,000 ML 50 ML IVCONT (13:47)
--- NOTE | 2024-03-20 14:38 | P.OP_ITS ---
Operative Note Operative Note Date of Service: 03/20/24 Narrative: Procedure: Esophagogastroduodenoscopy Endoscopist: Marianela Foster MD Indication: Abd pain, N,V Anesthesia Provider: Sarah Hood CRNA Anesthesia Type: MAC EGD Procedure:?? The procedure, indications, preparation and potential complications were reviewed with the patient, who indicated understanding and gave written informed consent to proceed. A physical exam was performed. The endoscope was introduced through the mouth, and advanced to the second part of duodenum. The mucosa was carefully examined on slow withdrawal of the endoscope. The patient tolerated the procedure well. There were no immediate complications.? ? EGD Findings:? * Esophagus:? Normal mucosa noted in the entire esophagus. The Z line was at 38. Middle and lower esophagus forceps biopsies were obtained to rule out eosinophilic esophagitis. * Stomach:? Normal mucosa was noted in the stomach. Random cold forceps gastric biopsies were taken to rule out H Pylori infection. Retroflexion was performed in the cardia that showed wide open hiatal aperture and absent flap valve. * Duodenum:? Normal mucosa was noted in the whole of the examined duodenum. Biopsies were taken from duodenal bulb and second portion of the duodenum to rule out celiac sprue. ? EGD Impressions:? * Normal esophagus (biopsy) * Hiatal hernia * Normal stomach (biopsy) * Normal duodenum (biopsy) ?? Recommendations:?? * Follow biopsy results. Our office will call or send a letter with results within 7-10 days. * Continue PPI therapy. * If H pylori +, patient will be prescribed eradication therapy followed by test of cure. * Avoid NSAIDs. * High probability of reflux based on disruption of anti-reflux barrier noted above. * Barium swallow pending Above has been reviewed with the patient.
[2024-03-20 14:39] VITALS: BP 114/65; PULSE 101; RESP 16; TEMP 36.3; O2SAT 98
[2024-03-20 14:54] VITALS: BP 112/65; PULSE 82; RESP 16; O2SAT 100
[2024-03-20 15:09] VITALS: BP 111/62; PULSE 76; RESP 16; TEMP 36.3; O2SAT 99
== END 2024-03-20 15:42 | disposition home or self-care (01) ==
PROVIDERS: Anesthesiology; Visit Provider Internal Medicine
PROC: 0DJ08ZZ Inspection of Upper Intestinal Tract, Via Natural or Artificial Opening Endoscopic (ICD-10-PCS; CPT 43235; principal; 2024-03-20 13:50)
DX: K44.9 Diaphragmatic hernia without obstruction or gangrene (principal); K29.70 Gastritis, unspecified, without bleeding
CPT/HCPCS: 43239; 81025; 88305; 88342; J1100; J1596; J2003; J2704

== ENCOUNTER → 2024-03-20 10:46 | Outpatient (BNV) | payer MEDICAID, SELFPAY | PROVIDERS: Visit Provider Internal Medicine | DX: R10.10 Upper abdominal pain, unspecified (principal); R11.2 Nausea with vomiting, unspecified | CPT/HCPCS: 43239 ==

== ENCOUNTER 2024-05-08 08:57 | Outpatient (REF) | payer MEDICAID, SELFPAY ==
--- NOTE | ~2024-05-08 | FL_ITS ---
EXAMINATION: XR FLUOROSCOPY UPPER GI WITH AIR CLINICAL INFORMATION: Epigastric pain. COMPARISON: None TECHNIQUE: Fluoroscopic air contrast upper GI examination was performed utilizing standard techniques with thin and thick barium and effervescent granules. Numerous spot images were obtained. FINDINGS: Dual and single contrast images of the esophagus demonstrate normal caliber, contour, and mucosal pattern. No evidence of stricture, mass, or ulcerations identified. Esophageal peristalsis was normal. No evidence of hiatus hernia identified. No significant gastroesophageal reflux was seen during the course of the examination and on reflux views. Dual contrast and single contrast images of the stomach demonstrated normal contour and mucosal pattern without evidence of mass, ulceration, or other abnormality. Contrast freely passed into the gastric antrum and duodenal bulb without delay. Single and air-contrast images of the duodenal bulb demonstrate no abnormality. The duodenal sweep has a normal appearance, course, and mucosal fold appearance. The imaged proximal jejunum has a normal fold pattern and caliber. FLUOROSCOPY TIME: 4 minutes 35 seconds. Number of Spot Images: 6 Number of Cine: 15 DOSE AREA PRODUCT: 2267 uGy-m2 (microgray-meter squared) FL/FL barium swallow with air IMPRESSION: Unremarkable upper GI series. This procedure was performed by Dar Bautista PA-C, and supervised by Dr. Fritz. Electronically signed by: Davion Fritz MD 05/10/2024 04:04 PM [facility] [place]
== END 2024-05-08 08:58 | disposition home or self-care (01) ==
LOC: HO.XRAY 08:57
PROVIDERS: Visit Provider Internal Medicine
DX: R10.10 Upper abdominal pain, unspecified (principal)
CPT/HCPCS: 74221

== ENCOUNTER → 2024-05-08 08:59 | Outpatient (BNV) | payer MEDICAID, SELFPAY | PROVIDERS: Visit Provider Physician Assistant Surgical | DX: R10.10 Upper abdominal pain, unspecified (principal) | CPT/HCPCS: 74221 ==

== ENCOUNTER 2024-05-11 11:55 | Outpatient (AMB) | payer MEDICAID, SELFPAY ==
--- NOTE | 2024-05-11 12:08 | A.OFFVIS_ITS ---
Vital Signs 05/11/24 12:09 Height 5 ft 4 in Weight 169 lb 12.095 oz BMI 29.1 BP 110/67 Blood Pressure Location Lt brachial Position Sitting Pulse 86 Intake Visit Reasons: S/P EGD; Dr. Foster Intake Note: Blake presents in the office as a follow up for the EGD and fluoroscopy. CC: He states that he is not having any concerns at this time. Allergies No Known Allergies [No Known Allergies*] Allergy (Verified 03/20/24 13:10) HPI Comments Details: 23 y.o F-->M who is here fro ER follow up. PT reports around 2 months ago started developing epigastric pain which is sharp goes to his back. Also with nausea but no vomiting. No changes with stool habits. No blood in stool. No fam hx of stomach ca or esophageal ca. NO change in meds or recent travel. Was given protonix from the ER which was completed for 4 weeks without any improvement. EGD: 2019: normal. Normal bx. H PYlori 2020: neg. 03/20/24: * Normal esophagus (biopsy) * Hiatal hernia * Normal stomach (biopsy) * Normal duodenum (biopsy) A. Duodenum, biopsy: Duodenal mucosa with preserved villi and no specific change. B. Stomach, random, biopsy: Gastric body mucosa with focal minimal chronic inactive inflammation; negative for intestinal metaplasia and dysplasia. C. Esophagus, lower, biopsy: Squamous mucosa and fragment of submucosal glands with no specific change; no columnar mucosa present. D. Esophagus, middle, biopsy: Squamous mucosa with no specific change; no columnar mucosa present. Comment: (B): Immunostain for H. pylori pending; addendum to follow 05/11/24: He is here for post endoscopy follow-up. Reports no improvement in epigastric pain with esomeprazole and/or gaviscon. Reviewed that EGD and barium swallow did not show any reflux or peptic pathology and therefore anti-secretory therapy is likely not helpful. To recall has epigastric pain most days of the week, assoc with food intake. Lasts for 30-45 misn. No assoc with defecation. Affects his overall appetite. [facility] Medical History Acute depression Surgical History History of esophagogastroduodenoscopy (EGD) Social History Alcohol intake: unknown Patient Tobacco Use Status: Never used Tobacco Current occupational status: unemployed Review of Systems Const All systems reviewed & are unremarkable except as noted in HPI and below Physical Exam Vital Signs: Last Vital Signs Pulse 86 05/11/24 12:09 BP 110/67 05/11/24 12:09 BMI result Body Mass Index 29.1 No apparent distress Nonicteric Abdomen soft, nondistended Alert and oriented x3, normal gait Results Reviewed Results Reviewed: Barium swallow 05/08/24: Dual and single contrast images of the esophagus demonstrate normal caliber, contour, and mucosal pattern. No evidence of stricture, mass, or ulcerations identified. Esophageal peristalsis was normal. No evidence of hiatus hernia identified. No significant gastroesophageal reflux was seen during the course of the examination and on reflux views. 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 Other ddx include gastroparesis, MCAS, CVID. Plan: - Recommend trial of TCA such as nortriptyline vs mirtazipine for FD - Since pt on multiple psychotropic meds, will defer the switch to his psychiatric provider Cheryle Phelan [employer]. - Pt reports will see her at the end of this month. In the meantime, can try FDgard which is available over the counter. - If no response to above, can consider further testing FOllow up 3 months Medications: New apryl oil-levomenthol 25-20.75 mg (FDgard) 2 caps PO BID 56 caps 1RF 2 weeks Coding Level of Care Code Est Pt Level 4 (42946) Diagnoses Upper abdominal pain R10.10 Nausea R11.0
[2024-05-11 12:09] VITALS: BP 110/67; PULSE 86; BMI 29.1
== END 2024-05-11 12:58 | disposition home or self-care (01) ==
PROVIDERS: Visit Provider Internal Medicine
DX: R10.10 Upper abdominal pain, unspecified (principal); R11.0 Nausea
CPT/HCPCS: 99214

== ENCOUNTER → 2024-05-11 11:55 | Outpatient (BNVA) | payer MEDICAID, SELFPAY | PROVIDERS: Visit Provider Internal Medicine | DX: R10.10 Upper abdominal pain, unspecified (principal); R11.0 Nausea | CPT/HCPCS: 99212 ==